=== PATIENT | female | born 1975 | race Caucasian/White ===

== ENCOUNTER 2016-10-07 10:38 | Emergency (ER) | payer BC ==
[~2016-10-07] VITALS: Ht 157.5 cm; Wt 55.3 kg
[2016-10-07] MEDS ORDERED: NS 500 ML IV ONE (11:00)
[2016-10-07] MEDS ORDERED: ASPIRIN 81 MG CHEW TABLET PO ONE (11:00)
[2016-10-07 11:13] LABS: BASO % 0.6 % (0.0-1.0); EOS # 0.2 K/mm3 (0.0-0.50); EOS % 2.1 % (0.0-3.0); LARGE UNSTAINED CELL # 0.2 K/mm3 (0.0-0.4); LARGE UNSTAINED CELL % 2.6 % (0.0-4.0); LYMPH # 2.7 K/mm3 (1.5-4.5); LYMPH % 31.3 % (24.0-44.0); MEAN CORPUSCULAR HEMOGLOBIN 32.4 pg (27.0-33.0); MEAN CORPUSCULAR VOLUME 95.5 fl (80.0-96.0); MONO # 0.4 K/mm3 (0.0-0.8); MONO % 5.6 % (0.0-5.0); NEUTROPHILS # 4.6 K/mm3 (1.8-7.7); NEUTROPHILS % 57.9 % (36.0-66.0); PLATELET COUNT, AUTOMATED 211 k/mm3 (150-450); RED CELL DISTRIBUTION WIDTH 12.2 % (11.5-14.5); WHITE BLOOD COUNT 7.9 K/mm3 (4.0-10.0)
[2016-10-07] MEDS ORDERED: SUCR1TA PO (11:23)
[2016-10-07] MEDS ORDERED: BUPR10TASR PO (11:23)
[2016-10-07 11:45] LABS: ALBUMIN 4.5 GM/DL (3.2-5.2); ALBUMIN/GLOBULIN RATIO 1.61 (1.00-1.93); ALKALINE PHOSPHATASE 52 U/L (45-117); ALT/SGPT 15 U/L (12-78); ANION GAP 8 MEQ/L (8-16); AST/SGOT 17 U/L (15-37); BILIRUBIN,DIRECT 0.1 MG/DL (0.0-0.2); BILIRUBIN,TOTAL 0.6 MG/DL (0.2-1.0); BLOOD UREA NITROGEN 8 MG/DL (7-18); CALCIUM LEVEL 8.6 MG/DL (8.5-10.1); CARBON DIOXIDE LEVEL 25 MEQ/L (21-32); CHLORIDE LEVEL 105 MEQ/L (98-107); CREATININE FOR GFR 0.75 MG/DL (0.55-1.02); GLOMERULAR FILTRATION RATE > 60.0 (>58); GLUCOSE, FASTING 102 MG/DL (70-105); MAGNESIUM LEVEL 2.1 MG/DL (1.8-2.4); POTASSIUM SERUM 3.5 MEQ/L (3.5-5.1); SODIUM LEVEL 138 MEQ/L (136-145); TOTAL PROTEIN 7.3 GM/DL (6.4-8.2)
--- NOTE | 2016-10-07 11:46 | REP ---
PORTABLE CHEST, SINGLE VIEW: COMPARISON: 07/06/2015 There is no evidence of acute infiltrate. No pleural effusion is seen. The heart is normal in size. The mediastinal silhouette is unremarkable. The visualized osseous structures are intact. IMPRESSION: No acute pulmonary disease. Signed by Shivam Ram MD 10/07/2016 03:54 P
[2016-10-07] MEDS ORDERED: ISOVUE-370 76% 100ML VIAL (Q9967) As Ordered ONE (11:49)
[2016-10-07] MEDS ORDERED: PROP10TA56 PO (12:16)
[2016-10-07] MEDS ORDERED: NICO2GUM34 PO (12:16)
[2016-10-07] MEDS ORDERED: BUPR150T5 PO (12:16)
[2016-10-07] MEDS ORDERED: TYLE1TAB5 PO (12:16)
--- NOTE | 2016-10-07 12:39 | REP ---
CT ANGIO CHEST: TECHNIQUE: Axial contrast enhanced images from the thoracic inlet to the upper abdomen using 100 mL Isovue 370 intravenous contrast material with multiplanar reformations. There is a tiny calcified granuloma in the right middle lobe as well as in the right lower lobe. No infiltrates are seen. Aberrant right subclavian artery is noted. There is no thoracic aortic aneurysm or dissection. There is no evidence of a pulmonary embolism. No adenopathy is seen in the chest. There is no pleural or pericardial effusion. The heart is normal in size. The visualized upper abdominal structures are unremarkable. IMPRESSION: No CT evidence of pulmonary embolism. Signed by Shivam Ram MD 10/07/2016 03:55 P
[2016-10-07] MEDS ORDERED: LISI2.5T3 PO (14:06)
[2016-10-07 14:11] VITALS: BP 136/92
--- NOTE | 2016-10-07 21:48 | ECGEPIP ---
Stationary ECG Study [facility] - ED Test Date: 2016-10-07 Pat Name: COMPA DENG Department: Room: - Gender: F Poker Manager: jeniffer : 1975 Requested By: JAZIEL Galicia Order Number: [id number] Reading MD: Delmi Méndez Measurements Intervals [place] Rate: 109 P: 59 CO: 120 QRS: -13 QRSD: 100 T: 23 QT: 342 QTc: 461 Interpretive Statements SINUS TACHYCARDIA PVC NSTTW ABNORMALITY NO PRIOR FOR COMPARISON Electronically Signed On 10-07-2016 21:47:54 EDT by Delmi Méndez
--- NOTE | 2016-10-09 21:22 | ECGEPIP ---
Stationary ECG Study [facility] - ED Test Date: 2016-10-07 Pat Name: COMPA DENG Department: Room: - Gender: F Home Help Aide: JT : 1975 Requested By: JAZIEL Galicia Order Number: [id number] Reading MD: Delmi Méndez Measurements Intervals [place] Rate: 89 P: 62 AL: 150 QRS: -12 QRSD: 92 T: 39 QT: 377 QTc: 460 Interpretive Statements SINUS RHYTHM WITH SINUS ARRHYTHMIA DECREASED RATE 10/07/16 10:49 Electronically Signed On 10-09-2016 21:22:25 EDT by Delmi Méndez
== END 2016-10-07 14:22 | disposition home or self-care (01) ==
LOC: EDBD 10:38 → M ED 12:33
DX: R00.2 Palpitations (principal); R07.9 Chest pain, unspecified; Z79.899 Other long term (current) drug therapy; Z82.49 Family history of ischemic heart disease and other diseases of the circulatory system; Z87.891 Personal history of nicotine dependence
CPT/HCPCS: 71010; 71275; 80048; 80076; 82550; 82553; 83690; 83735; 83880; 84443; 85025; 93005; 93041; 94760; 96360; 96361; 99285; Q9967

== ENCOUNTER → 2016-12-18 | Outpatient (REF) | payer BC ==
[~2016-12-18] MED LIST: BUPR10TASR PO; BUPR150T5 PO; LISI2.5T3 PO; NICO2GUM34 PO; PROP10TA56 PO; SUCR1TA PO; TYLE1TAB5 PO
== END ==
LOC: M LAB REF 16:41
PROVIDERS: ATTEND Nurse Practitioner Women's Health
DX: N39.0 Urinary tract infection, site not specified (principal)

== ENCOUNTER → 2017-09-30 | Outpatient (CLI) | payer BC | LOC: M WUC 15:39 | DX: M54.5 Low back pain (principal) | CPT/HCPCS: 72110 ==

== ENCOUNTER → 2019-07-12 | Outpatient (CLI) | payer BC ==
[~2019-07-12] MED LIST changes: +LISI-1046 PO; -LISI2.5T3 PO; -NICO2GUM34 PO; +NICO2GUM50 PO
== END ==
LOC: M EKG 13:20
PROVIDERS: ATTEND Family Medicine
DX: I10 Essential (primary) hypertension (principal)

== ENCOUNTER → 2020-06-13 | Outpatient (CLI) | payer SELFPAY ==
[~2020-06-13] MED LIST changes: -LISI-1046 PO; +LISI2.5T2 PO
== END ==
LOC: M LABSMTC 14:20
PROVIDERS: ATTEND Pediatrics
DX: Z11.59 Encounter for screening for other viral diseases (principal)

== ENCOUNTER → 2021-02-08 | Outpatient (CLI) | payer BC ==
--- NOTE | 2021-02-08 12:21 | REPMRS ---
Patient History The patient states she had a clinical breast exam in January 2021. Family history of unknown cancer at age 75 in father. Took hormonal contraceptives for 8 years. Tomosynthesis is performed. Volpara breast density is d. [facility] lifetime risk of breast cancer 9.3%. Patient states no breast complaints today. Patient has signed MRS History Sheet. Digital Woman Screen Mammo: February 08, 2021 - Exam #: [id number] Bilateral CC and MLO view(s) were taken. Technologist: Sherrell Ortiz, Technologist Prior study comparison: April 21, 2020, bilateral digital mammo screening bilat, performed at [facility] [employer] [facility]. January 08, 2019, bilateral digital mammo screening bilat, performed at [facility]. January 19, 2016, bilateral digital mammo screening bilat, performed at [facility]. June 15, 2013, left breast digital mammo diagnostic unilateral, performed at [facility]. June 08, 2013, bilateral bilat screen digital mammo, performed at [facility] ([facility]). FINDINGS: The breast tissue is extremely dense which could obscure a lesion on mammography. There has been no change in the appearance of the mammogram from the prior studies. There is a moderate amount of residual fibroglandular tissue which is fairly symmetric. There is no interval development of dominant mass, areas of architectural distortion, or clustered microcalcification typical of malignancy. No significant changes when compared with prior studies. Assessment: BI-RADS/ACR category 1 mammogram. Negative Mammogram. Recommendation Routine screening mammogram in 1 year (for women over age 40). This mammogram was interpreted with the aid of an FDA-approved computer-aided dectection system. Electronically Signed By: Shivam Ram MD 02/08/21 1483
--- NOTE | 2021-02-08 12:21 | REP ---
INDICATION: N95.0 POSTMENOPAUSAL BLEEDING. COMPARISON: 12/23/2008 TECHNIQUE: Transvesical and transvaginal scanning FINDINGS: The uterus measures 8.1 x 3.4 x 4.1 cm. Within the posterior uterine body there is a 1.1 x 0.8 x 1 cm sized hypoechoic nodule. The endometrial echo complex is smooth and unremarkable appearing measuring 3 mm in its greatest thickness. The right ovary measures 1.9 x 1.5 x 1.5 cm and is within normal limits with an RI of 0.56 The left ovary measures 2.2 x 1.9 x 1.6 cm and is within normal limits with an RI 0.56. IMPRESSION: Uterine myomatous changes as described above. <Electronically signed by Juan Ansari > 02/08/21 2452
== END ==
LOC: M WHC 10:21
PROVIDERS: ATTEND Obstetrics & Gynecology
DX: Z12.31 Encounter for screening mammogram for malignant neoplasm of breast (principal); N95.0 Postmenopausal bleeding

== ENCOUNTER → 2021-03-29 | Outpatient (CLI) | payer BC ==
[~2021-03-29] MED LIST changes: -LISI2.5T2 PO; +LISI2.5T9 PO
--- NOTE | 2021-03-29 19:57 | REPVR ---
PROCEDURE INFORMATION: Exam: MR Lumbar Spine Without Contrast Exam date and time: 03/29/2021 8:27 AM Age: 45 years old Clinical indication: Low back pain; Additional info: Spondylosis TECHNIQUE: Imaging protocol: Multiplanar magnetic resonance images of the lumbar spine without intravenous contrast. COMPARISON: CR SPINE LS COMPLETE 09/30/2017 3:51 PM FINDINGS: Vertebrae: Anatomic alignment. No acute fracture seen. Spinal cord: The conus medullaris ends normally. There is disc desiccation with ublu-xv-edpxhict disc height loss and spondylosis at L5-S1. Elsewhere, the intervertebral are preserved in height and signal intensity. There is mild prevertebral spondylosis at L2-L3. L1-L2: No significant disc disease. No significant spinal canal stenosis. No neural foraminal stenosis. L2-L3: Mild disc bulge. No stenoses. L3-L4: Mild right facet arthropathy. No stenoses. L4-L5: Mild right facet arthropathy. No stenoses. L5-S1: Cwnn-rl-daxgybkm disc osteophyte and facet arthropathy. A 4 mm right paracentral disc protrusion abuts and slightly flattens the right S1 nerve root. Left lateral canal disc osteophyte may contact the left S1 nerve root. No significant central spinal canal stenosis. Mild bilateral neural foraminal stenoses. Soft tissues: Unremarkable. Kidneys and ureters: The left kidney demonstrates a cyst. IMPRESSION: Degenerative changes at L5-S1, as above. Electronically signed by: Mecca Quarles On 03/29/2021 19:57:02 PM
== END ==
LOC: M RAD 07:20
PROVIDERS: ATTEND Orthopaedic Surgery
DX: M47.896 Other spondylosis, lumbar region (principal)

== ENCOUNTER → 2021-04-14 | Outpatient (CLI) | payer BC ==
[~2021-04-14] MED LIST changes: +LOSA25TA14 PO
== END ==
LOC: M LABSMTC 11:28
PROVIDERS: ATTEND Anesthesiology
DX: Z01.812 Encounter for preprocedural laboratory examination (principal); Z20.822 Contact with and (suspected) exposure to COVID-19

== ENCOUNTER 2021-04-19 07:38 | Day surgery (SDC) | payer BC ==
[~2021-04-19] VITALS: Ht 157.5 cm; Wt 59.0 kg
[~2021-04-19 07:38] MED LIST changes: +LR 1,000 ML IV ONE
--- OUTSIDE RECORDS SUMMARY | 2021-04-19 07:41 | CCD | Continuity of Care Document ---
Author Author Caitlyn CARPIO M.D. Organization Unknown Address [address] [place] [address] Phone [phone] Problems Active Problems Provider Date Anxiety state JOB Mckee Onset: 01/13/2012 Headache Jayleen Mike D.O. Onset: 2011 Social History Type Date Description Comments Sex Unknown ETOH Use consumes 1-2 glasses of wine per week Now rare Tobacco Use Start: Unknown End: Unknown Patient is a former smoker smokes 1 1/2 paks a week - Quit 09/2016 - restarted and quit again 09/10/2019 for good Allergies, Adverse Reactions, Alerts Active Allergies Reaction Severity Comments Date Sulfa shortness of breath 01/13/20 12 Medications Active Medications SIG Qnty Indications Ordering Provide r Date Zanaflex 4mg Capsules by mouth every 6 hours as needed muscle spasm 30caps Juan Jose Trotter 09/07/2020 Xanax 0.25mg Tablets 1 tab by mouth three a day as needed anxiety 30tabs Smith Carpio M.D. Losartan Potassium 50mg Tablets 1 by mouth every day 90tabs Smith Carpio M.D. 10/28/2018 History Medications Prednisone 20mg Tablets 3 tabs x 3 days, then 2 tabs x3 days then 1 tab x 3 days then 1/2 tab x 4 days. 30tabs Smith Carpio M.D. 09/07/2020 - 02/12/2021 Medications Administered in Office Medication SIG Qnty Indications Ordering Provider Date Immunization Each Add'l Vacc/To Injection Jayleen Mike D.O. 1 Immunizations CPT Code Status Date Vaccine Lot # [id number] Given 04/28/2014 Fluvirin Virus Vaccine [id number] Given 04/28/2014 Pneumovax 23 [id number] Given 04/15/2012 Fluvirin Virus Vaccine Vital Signs Date Vital Result Comment 02/12/2021 9:00am BP Systolic 128 mmHg BP Diastolic 72 mmHg Heart Rate 72 /min Height 62.75 inches 5'2.75" Weight 129.00 lb BMI (Body Mass Index) 23.0 kg/m2 10/31/2020 1:31pm BP Systolic 130 mmHg BP Diastolic 82 mmHg Heart Rate 80 /min Height 62.75 inches 5'2.75" Weight 129.00 lb BMI (Body Mass Index) 23.0 kg/m2 Results Test Acquired Date Facility Test Result H/L Range Note Comprehensive Chem Profile 02/12/2021 [facility] Person: [place] [address] [phone] Glucose 78 mg/dL 74 - 99 1 BUN 13 mg/dL 7 - 18 Creatinine 0.7 mg/dL 0.6 - 1.3 Sodium 140 mEq/L 136 - 145 Potassium 4.4 mEq/L 3.5 - 5.1 Chloride 101 mEq/L 98 - 107 Carbon Dioxide 33 mEq/L High 21 - 32 Calcium 9.5 mg/dL 8.5 - 10.1 Alk. Phosphatase 49 mg/dL 46 - 116 Total Bilirubin 0.7 mg/dL 0.2 - 1.0 Ast (Sgot) 22 U/L 15 - 37 Alt (SGPT) 24 U/L 12 - 78 Albumin 4.7 g/dL 3.4 - 5.0 Total Protein 7.5 g/dL 6.4 - 8.2 A/G Ratio 1.68 CALC 1.00 - 1.90 GFR >= 60 mL/min >60 GFR >= 60 mL/min >60 2 Lipid Profile 02/12/2021 [facility] , [facility] Refrigeration Person: [place] [address] [phone] Cholesterol 250 mg/dL High 131 - 200 Triglycerides 106 mg/dL 30 - 150 HDL Cholesterol 63 mg/dL High 35 - 60 LDL (Calculated) 166 CALC High 50 - 159 1 100-125 mg/dL PRE-DIABET ES/FASTING >126 mg/dL DIABETES/FASTING 2 CHRONIC KIDNEY DISEASE STAGI NG PER NKF STAGE I & II GFR >= 60 NORMAL TO MILDLY DECREASED STAGE III GFR 30-59 MODERATELY DECREASED STAGE IV GFR 15-29 SEVERELY DECREASED STAGE V GFR <15 VERY LITTLE GFR LEFT ESRD GFR <15 ON DIRECTOR OF ONLINE MERCHANDISING Procedures Date Code Description Status 02/12/2021 99975 Est Prevent Med (40-64Yrs) Compl eted 10/31/2020 48049 Office/Outpatient Established SF MDM 10-19 Min Completed 02/10/2017 [id number] Mammogram Completed 09/07/2015 [id number] Colonoscopy Completed 11/17/2002 [id number] Mammogram Completed Medical Devices Description No Information Available Encounters Type Date Location Provider Dx Diagnosis Office Visit 02/12/2021 9:00a [facility] Carpio M.[facility] Z00.00 Encntr for general adult medical exam w/ o abnormal findings Z87.891 Personal history of nicotine dependence I10 Essential (primary) hyperten ana I34.1 Nonrheumatic mitral (valve) prolapse E78.5 Hyperlipidemia, unspecified K21.9 Gastro-esophageal reflux dis ease without esophagitis Office Visit 10/31/2020 1:40p [facility] Kat JR D48.5 Neoplasm of uncertain behavi or of skin Assessments Date Code Description Provider 02/12/2021 Z00.00 Encounter for genera l adult medical examination without abnormal findings Smith Carpio M.D. 02/12/2021 Z87.891 Personal history of nicotine dep endence Smith Carpio M.D. 02/12/2021 I10 Essential (primary) hypertension Smith Carpio M.D. 02/12/2021 I34.1 Nonrheumatic mitral (valve) prol apse Smith Carpio M.D. 02/12/2021 E78.5 Hyperlipidemia, unspecified Roland Carpio M.D. 02/12/2021 K21.9 Gastro-esophageal reflux disease without esophagitis Smith Carpio M.D. 10/31/2020 D48.5 Neoplasm of uncertain behavior o f skin [facility] Plan of Treatment Future Appointment(s):* 08/17/2021 8:30 am - [facility] 02/12/2021 - Smith Carpio M.D.* Z00.00 Encntr for general adult medical exam w/o abnormal findings * Z87.891 Personal history of nicotine dependence * I10 Essential (primary) hypertension * I34.1 Nonrheumatic mitral (valve) prolapse * E78.5 Hyperlipidemia, unspecified * K21.9 Gastro-esophageal reflux disease without esophagitis * * Comments:* 1. Annual well visit: Well education was done today. She follows up with Dr. Cleveland for FINANCE DIRECTOR. She had a mammogram prior via [facility]. She is up to date with colonoscopy and EGD [place] [address] Mecca Tellez. Immunization discussed. She is doing overall well. I have congratulated her for remaining smoke free.2. Hypertension: Well-controlled on present regimen, will continue and monitor. 3. Nonrheumatic mitral (valve) prolapse: Asymptomatic. Mild mitral insufficiency on echo 02/2019. We will recheck appropriately.4. Hyperlipidemia: Her cholesterol and LDL were elevated in August 2020. We discussed positive lifestyle changes and we will continue to monitor.5. Gastro-esophageal reflux disease without esophagitis: Diet controlled. She will avoid spicy foods.6. Allergic rhinitis: Education was done. She will continue to use Claritin as direct ed.7. Skin lesions: Education was done. She is going to see Azalia at [facility] for dermatological issues. We will monitor.Ongoing cares: I am going to see her again in 6 months with CMP, lipids and TSH. Labs on way out - she will follow up on those. We will make sure her cholesterol is normal. If she has new problems or issues sooner she will let us know. Functional Status Description No Information Available Mental Status Description No Information Available Referrals Refer to Reason for Referral Status Appt Date [facility] CONSULT FOR LT BACK AND LT LEG PA IN Created [address] [place] [address] [phone] [facility] D[facility] CONSULT FOR FULL SKIN EVALUATION Created [address] [address] [phone]
--- OUTSIDE RECORDS SUMMARY | 2021-04-19 07:41 | CCD | Continuity of Care Document ---
Author Author Caitlyn NIXON M.D. Organization Unknown Address [address] [place] [address] Phone [phone] Problems Active Problems Provider Date Anxiety state [...] SIG Qnty Indications Ordering Provide r Date Prednisone 20mg Tablets 3 tabs x 3 days, then 2 tabs x3 days then 1 tab x 3 days then 1/2 tab x 4 days. 30tabs Smith Nixon M.D. 09/07/2020 Zanaflex 4mg Capsules by mouth every 6 hours as needed muscle spasm 30caps Juan Jose Trotter 09/07/[address] by mouth twice a day 60tabs Smith Nixon M.D. 05/09/2020 GI Support Supplement Smith Nixon M.D. 11/04/2019 Xanax 0.25mg Tablets 1 tab by mouth three a day as needed anxiety 30tabs Smith Nixon M.D. Losartan Potassium 50mg Tablets 1 by mouth every day 90tabs Smith Nixon M.D. 10/28/2018 Flonase 50mcg/Act Suspension one spray each nare twice a day as needed 1mo Jayleen Lacey D.O. 04/13/2014 Medications Administered in Office Medication SIG Qnty Indications Ordering Provider Date Immunization Each Add'l Vacc/To Injection Jayleen Mike D.O. 1 Immunizations CPT Code Status Date Vaccine Lot # [id number] Given 04/28/2014 Fluvirin Virus Vaccine [id number] 01 30169 Given 04/28/2014 Pneumovax 23 [id number] Q2037 Given 04/15/2012 Fluvirin Virus Vaccine Vital [...] BMI (Body Mass Index) 23.0 kg/m2 Results Description No Information Available Procedures Date Code Description Status 10/31/2020 68161 Office/Outpatient Established SF MDM 10-19 Min Completed 02/10/2017 [id number] Mammogram Completed 09/07/2015 [id number] Colonoscopy Completed 11/17/2002 [id number] Mammogram Completed Medical Devices Description No Information Available Encounters Type Date Location Provider Dx Diagnosis Office Visit 10/31/2020 1:40p [facility] GI Sainz JR D48.5 Neoplasm of uncertain behavi or of skin Assessments Date Code Description Provider 10/31/2020 D48.5 Neoplasm of uncertain behavior o f skin [facility] Plan of Treatment No Information Available Functional Status Description No Information Available Mental Status Description No Information Available Referrals Refer to Dr Reason for Referral Status Appt Date [facility] Dermatology CONSULT FOR FULL SKIN EVALUATION Created [address] [address] [phone]
--- OUTSIDE RECORDS SUMMARY | 2021-04-19 07:41 | CCD | Continuity of Care Document ---
Author Author Caitlyn MIXON Organization Unknown Address [address] [place] [address] Phone [phone] Care Team Providers Care Nanoelectronics Engineer Name Role Phone Smith Carpio MD [facility] [phone] Problems Description No Information Available Social History Type Date Description Comments Sex Unknown Allergies and adverse reactions Description No Information Available Medications Active Medications SIG Qnty Indications Ordering Provide r Date Mobic 7.5mg Tablets 1 by mouth after meals twice a day 60tabs M47.896 Clay Ramsey MD 03/19/2021 Immunizations Description No Information Available Vital Signs Date Vital Result Comment 03/19/2021 10:12am Body Temperature 96.9 F Height 63 inches 5'3" Weight 129.50 lb BMI (Body Mass Index) 22.9 kg/m2 03/19/2021 9:51am Body Temperature 96.4 F Height 64 inches 5'4" Weight 209.00 lb BMI (Body Mass Index) 35.9 kg/m2 Results Description No Information Available Procedures Date Code Description Status 04/11/2021 92927 Office/Outpatient Established Mo d MDM 30-39 Min Completed 03/19/2021 26337 Office/Outpatient New Moderate M DM 45-59 Minutes Completed 03/19/2021 95629 X-Ray Spine Lumbosacral Complete Inc Bending Views Min Of 6 Completed 03/19/2021 97183 X-Ray Spine Lumbosacral Complete Inc Bending Views Min Of 6 Completed Medical Devices Description No Information Available Encounters Type Date Location Provider Dx Diagnosis Office Visit 04/11/2021 3:15p [facility] Neena Mixon PA-C M4 7.27 Other spondylosis with radiculopathy, lumbosacral region Office Visit 03/19/2021 9:30a [facility] Clay Ramsey MD M47.896 Other spondylosis, lumbar region M54.32 Sciatica, left side Assessments Date Code Description Provider 04/11/2021 M47.27 Other spondylosis with radiculop athy, lumbosacral region Neena Mixon PA-C 03/19/2021 M47.896 Other spondylosis, lumbar region Clay Ramsey MD 03/19/2021 M54.32 Sciatica, left side Clay [address], MD 03/19/2021 M47.896 Other spondylosis, lumbar region Neena Mixon PA-C Plan of Treatment Future Appointment(s):* 04/27/2021 3:30 pm - Santo Solis, PT, DPT at Physical Therapy * 05/09/2021 3:45 pm - Neena Mixon PA-C at [facility] 04/11/2021 - Neena Mixon PA-C* M47.27 Other spondylosis with radiculopathy, lumbosacral region* Follow up:* 4 week low back recheck w/[facility] Functional Status Description No Information Available Mental Status Description No Information Available Referrals Refer to Dr Reason for Referral Status Appt Date Neena Mixon PA-C NO AUTH REQUIRED FOR PT L-SP INE. [facility] HAS 63 VISITS REMAINING OF 75 PER YEAR. $35 COPAY EACH VISIT. HW Created [facility] [place] [address] [phone] Neena Mixon PA-C MRI NO AUTH REQUIRED FOR MRI OF LUMBAR SPINE ([id number]) TO KENNETH MarquezGilma DG Created [facility] [place] [address] [phone]
--- OUTSIDE RECORDS SUMMARY | 2021-04-19 07:41 | CCD | Continuity of Care Document ---
Author Author Caitlyn Salmeron Organization Unknown Address [address] [place] [address] Phone [phone] Care Team Providers Care Senior Business Development Analyst Name Role Phone Smith Carpio MD [facility] [phone] Problems Description No Information Available Social History Type Date Description Comments Sex Unknown Tobacco Use Start: Unknown End: Unknown Former Cigarette Smo ker Quit 2018 ETOH Use Rarely consumes alcohol Sun Exposure minimum amount of sun exposure Sun Exposure Tanning bed - Has used in past. No longer using. Sun Exposure Has experienced blistering from sunburns Sun Exposure Uses > 30 SPF Allergies, Adverse Reactions, Alerts Active Allergies Reaction Severity Comments Date sulfa 11/21/2020 Medications Active Medications SIG Qnty Indications Ordering Provide r Date Losartan Potassium Unknown Hair/Skin/Nails Unknown 0 Vitamin C Unknown Vitamin D3 Unknown Immunizations Description No Information Available Vital Signs Date Vital Result Comment 11/21/2020 8:01am BP Systolic 132 mmHg BP Diastolic 80 mmHg Weight 120.00 lb Results Description No Information Available Procedures Date Code Description Status 11/21/2020 71969 Office/Outpatient New Moderate M DM 45-59 Minutes Completed 11/21/2020 15891 Destruction Of Lesions 2-14 Comp leted 11/21/2020 08686 Destruction Of Lesion First Comp leted Medical Devices Description No Information Available Encounters Type Date Location Provider Dx Diagnosis Office Visit 11/21/2020 8:00a Main Office BENSON Boothe L57.0 Actinic keratosis L81.6 Other disorders of diminishe d melanin formation L68.0 Hirsutism R20.8 Other disturbances of skin s ensation Assessments Date Code Description Provider 02/08/2021 L68.0 Hirsutism Deepa 01/05/2021 L68.0 Hirsutism Faviola 11/21/2020 L98.8 Other specified disorders of the skin and subcutaneous tissue Laverne [place] 11/21/2020 L98.8 Other specified disorders of the skin and subcutaneous tissue Cosmetic Consultation 11/21/2020 L57.0 Actinic keratosis Karime MINO Kaufman 11/21/2020 L81.6 Other disorders of diminished me lanin formation MINO Boothe 11/21/2020 L68.0 Hirsutism Karime SMINO Weller 11/21/2020 R20.8 Other disturbances of skin sensa tion MINO Boothe Plan of Treatment Future Appointment(s):* 03/09/2021 9:30 am - Deepa at Cosmetics * 04/10/2021 8:00 am - MINO Haile at Main Office 01/05/2021 - Faviola* L68.0 Hirsutism* Comments:* Discussed treatment options including electrolysis, laser, Vaniqa, shaving, waxing.Patient tolerated treatment well. See R Flow Sheet.Verbalizes understanding of Patient Education provided. Encouraged to call with any questions or concerns. Functional Status Description No Information Available Mental Status Description No Information Available Referrals Description No Information Available
--- OUTSIDE RECORDS SUMMARY | 2021-04-19 07:41 | CCD | Continuity of Care Document ---
Author Author Caitlyn CONLEY MD Organization Unknown Address [address] [place] [address] Phone [phone] Care Team Providers Care Hotel Reservationist Name Role Phone Smith Carpio MD [facility] [phone] Problems Description No Information Available Social History Type Date Description Comments Sex Unknown Allergies, Adverse Reactions, Alerts Description No Information Available Medications Active Medications SIG Qnty Indications Ordering Provide r Date Mobic 7.5mg Tablets 1 by mouth after meals twice a day 60tabs M47.896 Clay Conley MD 03/19/2021 Immunizations Description No Information Available Vital Signs Date Vital Result Comment 03/19/2021 10:12am Body Temperature 96.9 F Height 63 inches 5'3" Weight 129.50 lb BMI (Body Mass Index) 22.9 kg/m2 03/19/2021 9:51am Body Temperature 96.4 F Height 64 inches 5'4" Weight 209.00 lb BMI (Body Mass Index) 35.9 kg/m2 Results Description No Information Available Procedures Date Code Description Status 03/19/2021 74106 X-Ray Spine Lumbosacral Complete Inc Bending Views Min Of 6 Completed Medical Devices Description No Information Available Encounters Description No Information Available Assessments Date Code Description Provider 03/19/2021 M47.896 Other spondylosis, lumbar region Neena Mixon PA-C Plan of Treatment 03/19/2021 - Neena Mixon PA-C* M47.896 Other spondylosis, lumbar region * New Medication:* Mobic 7.5 mg - 1 by mouth after meals twice a day * New Xrays:* MRI Lumbar Spine, Ordered: 03/19/21 * Follow up:* lumbar mri results with [facility] Functional Status Description No Information Available Mental Status Description No Information Available Referrals Description No Information Available
--- OUTSIDE RECORDS SUMMARY | 2021-04-19 07:41 | CCD | Continuity of Care Document ---
Author Author Caitlyn MIXON Organization Unknown Address [address] [place] [address] Phone [phone] Care Team Providers Care Marine Steward Name Role Phone Smith Carpio MD [facility] [phone] Problems Description No Information Available Social History [...] Available Procedures Date Code Description Status 03/19/2021 66264 Office/Outpatient New Moderate M DM 45-59 Minutes Completed 03/19/2021 83064 X-Ray Spine Lumbosacral Complete Inc Bending Views Min Of 6 Completed 03/19/2021 73582 X-Ray Spine Lumbosacral Complete Inc Bending Views Min Of 6 Completed Medical Devices Description No Information Available Encounters Type Date Location Provider Dx Diagnosis Office Visit 03/19/2021 9:30a [place] Clay Ramsey MD M47.896 Other spondylosis, lumbar region M54.32 Sciatica, left side Assessments Date Code Description Provider 04/11/2021 M51.37 Other intervertebral disc degene ration, lumbosacral region Neena Mixon PA-C 04/11/2021 M51.27 Other intervertebral disc displa cement, lumbosacral region Neena Mixon PA-C 04/11/2021 M48.07 Spinal stenosis, lumbosacral reg ion Neena Mixon PA-C 04/11/2021 M47.27 Other spondylosis with radiculop athy, lumbosacral region Neena Mixon PA-C 04/11/2021 M54.32 Sciatica, left side Neena balderrama PA-C 03/19/2021 M47.896 Other spondylosis, lumbar region Clay Ramsey MD 03/19/2021 M54.32 Sciatica, left side Clay [address], MD 03/19/2021 M47.896 Other spondylosis, lumbar region Neena Mixon PA-C Plan of Treatment Future Appointment(s):* 05/09/2021 3:45 pm - Neena Mixon PA-C at [place] 04/11/2021 - Neena Mixon PA-C* M51.37 Other intervertebral disc degeneration, lumbosacral region* Follow up:* 4 week low back recheck w/BMS * M51.27 Other intervertebral disc displacement, lumbosacral region * M48.07 Spinal stenosis, lumbosacral region * M47.27 Other spondylosis with radiculopathy, lumbosacral region * M54.32 Sciatica, left side Functional Status Description No Information Available Mental Status Description No Information Available Referrals Refer to Reason for Referral Status Appt Date Neena Mixon PA-C MRI NO AUTH REQUIRED FOR MRI OF LUMBAR SPINE ([id number]) TO KENNETH LÓPEZ Created [address] [place] [address] [address] [place] [address] [phone]
--- OUTSIDE RECORDS SUMMARY | 2021-04-19 07:41 | CCD | Continuity of Care Document ---
Author Author Caitlyn MARTINEZ Organization Unknown Address [address] [place] [address] Phone [phone] Care Team Providers Care Elementary Assistant Teacher Name Role Phone Smith Carpio M.D. [facility] [phone] Problems Active Problems Provider Date Disorder of menstruation Cassy Pavon WHNP Onset: 012 Social History Type Date Description Comments Sex Unknown Tobacco Use Start: Unknown End: Unknown Quit Smoking Status Reviewed: 03/30/21 Quit ETOH Use Non-smoker, Occasional Drinker, Non-drug User Tobacco Use Start: Unknown End: Unknown Patient is a former smoker Exercise Type/Frequency Exercises regularly Allergies, Adverse Reactions, Alerts Active Allergies Criticality Reaction | Severity Comments Date Sulfa Unable to assess criticality 09/25/2009 Medications Active Medications SIG Qnty Indications Ordering Provide r Date Losartan Potassium 25mg Tablets Unknown Immunizations Description No Information Available Vital Signs Date Vital Result Comment 01/16/2021 8:46am BP Systolic 134 mmHg BP Diastolic 74 mmHg Height 62.5 inches 5'2.50" Weight 127.00 lb BMI (Body Mass Index) 22.9 kg/m2 BSA (Body Surface Area) 1.59 m2 01/05/2020 9:49am BP Systolic 136 mmHg BP Diastolic 78 mmHg Height 62.25 inches 5'2.25" Weight 123.00 lb BMI (Body Mass Index) 22.3 kg/m2 BSA (Body Surface Area) 1.56 m2 Results Test Acquired Date Facility Test Result H/L Range Note Thinprep W/Reflex HR HPV If Asc-US 01/16/2021 [facility] th TP Reflex HPV ASCUS Normal Normal 1 TP Reflex HPV ASCUS SEE IMAGE 1 SPECIME N PART A. Cervical, Endocervical, ThinPrep Pap (Senior Electronics Engineer) CYTOLOGY HX-------- Date of Last Menstrual Period: N Other Information:Previous Normal Pap: 01/05/20 Post-menopausal FINAL DIAGNOSIS---- INTERPRETATION: Negative for Intraepithelial Lesion or Malignancy. SPECIMEN ADEQUACY:Satisfactory for evaluation. Endocervical/transformation zone component present. 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 D25.1 Intramural leiomyoma of uter us Office Visit 01/16/2021 9:00a [facility] senior engineering team leader Roselyn Martinez MD N9 5.0 Postmenopausal bleeding Z01.411 Encntr for ribbon hanking machine operator exam (general ) (routine) w abnormal findings Z12.4 Encounter for screening for malignant neoplasm of cervix Z12.39 Encounter for ot screening for malignant neoplasm of breast Assessments Date Code Description Provider 03/30/2021 N95.0 Postmenopausal bleeding Roselyn Martinez MD 03/30/2021 D39.0 Neoplasm of uncertain behavior o f uterus Roselyn Martinez MD 03/30/2021 D25.1 Intramural leiomyoma of uterus H Roselyn mejia MD 01/16/2021 N95.0 Postmenopausal bleeding Roselyn Martinez MD 01/16/2021 Z01.411 Encounter for gyneco logical examination (general) (routine) with abnormal findings Roselyn Martinez MD 01/16/2021 Z12.4 Encounter for screening for cristhian gnant neoplasm of cervix Roselyn Martinez MD 01/16/2021 Z12.39 Encounter for other screening for malignant neoplasm of breast Roselyn Martinez MD Plan of Treatment Future Appointment(s):* 05/02/2021 8:45 am - Roselyn Martinez MD at [facility] senior engineering team leader * 04/19/2021 10:00 am - Roselyn Martinez MD at [facility] Or * 01/30/2022 2:15 pm - Roselyn Martinez MD at [facility] senior engineering team leader 03/30/2021 - Roselyn Martinez MD* N95.0 Postmenopausal bleeding * 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
--- OUTSIDE RECORDS SUMMARY | 2021-04-19 07:41 | CCD | Continuity of Care Document ---
Author Author Caitlyn MARTINEZ Organization Unknown Address [address] [place] [address] Phone [phone] Care Team Providers Care Tire Builder Name Role Phone Smith Carpio M.D. [facility] [phone] Problems Active Problems Provider Date Disorder of menstruation Cassy Pavon WHNP Onset: 012 Social History Type Date Description Comments Sex Unknown Tobacco Use Start: Unknown End: Unknown Quit Smoking Status Reviewed: 01/16/21 Quit ETOH Use Non-smoker, Occasional Drinker, Non-drug [...] N PART A. Cervical, Endocervical, ThinPrep Pap (Printed Circuit Board Pcb Draftsman) CYTOLOGY HX-------- Date of Last Menstrual Period: N Other Information:Previous Normal Pap: 01/05/20 Post-menopausal FINAL DIAGNOSIS---- INTERPRETATION: Negative for Intraepithelial Lesion or Malignancy. SPECIMEN ADEQUACY:Satisfactory for evaluation. Endocervical/transformation zone component present. Procedures Date Code Description Status 01/16/2021 99830 Preventive Visit Est 40-64 Yrs C ompleted 04/21/2020 [id number] Mammogram Completed Medical Devices Description No Information Available Encounters Type Date Location Provider Dx Diagnosis Office Visit 01/16/2021 9:00a [facility] decorative greens cutter Roselyn Martinez MD N9 5.0 Postmenopausal bleeding Z01.411 Encntr for geotechnical department manager exam (general ) (routine) w abnormal findings Z12.4 Encounter for screening for malignant neoplasm of cervix Z12.39 Encounter for oth screening for malignant neoplasm of breast Assessments Date Code Description Provider 01/16/2021 N95.0 Postmenopausal bleeding Roselyn Martinez MD 01/16/2021 Z01.411 Encounter for gyneco logical examination (general) (routine) with abnormal findings Roselyn Martinez MD 01/16/2021 Z12.4 Encounter for screening for cristhian gnant neoplasm of cervix Roselyn Martinez MD 01/16/2021 Z12.39 Encounter for other screening for malignant neoplasm of breast Roselyn Martinez MD Plan of Treatment Future Appointment(s):* 05/02/2021 8:45 am - Roselyn Martinez MD at [facility] decorative greens cutter * 04/19/2021 10:00 am - Roselyn Martinez MD at [facility] Or * 01/30/2022 2:15 pm - Roselyn Martinez MD at [facility] decorative greens cutter Functional Status Description No Information Available Mental Status Description No Information Available Referrals Description No Information Available
--- OUTSIDE RECORDS SUMMARY | 2021-04-19 07:41 | CCD | Continuity of Care Document ---
Author Author Caitlyn NIXON M.D. Organization Unknown Address [address] [place] [address] Phone [phone] Problems Active Problems Provider Date Anxiety state JOB Mckee Onset: 01/13/2012 Headache Jayleen Mike D.O. Onset: 2011 Social History Type Date Description Comments Sex Unknown ETOH Use consumes 1-2 glasses of wine per week Tobacco Use Start: Unknown End: Unknown Patient is a former smoker smokes 1 1/2 paks a week - Quit 09/2016 - restarted and quit again 09/2019. Allergies, Adverse Reactions, Alerts Active Allergies Reaction Severity Comments Date Sulfa shortness of breath 01/13/20 12 Medications Active Medications SIG Qnty Indications Ordering Provide r Date Prednisone 20mg Tablets 3 tabs x 3 days, then 2 tabs x3 days then 1 tab x 3 days then 1/2 tab x 4 days. 30tabs Smith Nixno M.D. 09/07/2020 Zanaflex 4mg Capsules by mouth [...] twice a day as needed 1mo Jayleen R. VanDe Wall, D.O. 04/13/2014 Medications Administered in Office Medication SIG Qnty Indications Ordering Provider Date Immunization Each Add'l Vacc/To Injection Jayleen Mike D.O. 1 Immunizations CPT Code Status Date Vaccine Lot # [id number] Given 04/28/2014 Fluvirin Virus Vaccine 53050 01 20359 Given 04/28/2014 Pneumovax 23 [id number] Q2037 Given 04/15/2012 Fluvirin Virus Vaccine Vital [...] Available Procedures Date Code Description Status 10/31/2020 76473 Office/Outpatient Established SF MDM 10-19 Min Completed 02/10/2017 [id number] Mammogram Completed 09/07/2015 28893520 Colonoscopy Completed 11/17/2002 55389993 Mammogram Completed Medical Devices Description No Information Available Encounters Type Date Location Provider Dx Diagnosis Office Visit 10/31/2020 1:40p [facility] 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
--- OUTSIDE RECORDS SUMMARY | 2021-04-19 07:41 | CCD | Continuity of Care Document ---
Author Author Caitlyn CONLEY MD Organization Unknown Address [address] [place] [address] Phone [phone] Care Team Providers Care Radial Drill Press Operator Name Role Phone Smith Carpio MD [facility] [phone] Problems Description No Information Available Social History [...] Available Procedures Date Code Description Status 03/19/2021 17498 Office/Outpatient New Moderate M DM 45-59 Minutes Completed 03/19/2021 65907 X-Ray Spine Lumbosacral Complete Inc Bending Views Min Of 6 Completed 03/19/2021 31185 X-Ray Spine Lumbosacral Complete Inc Bending Views Min Of 6 Completed Medical Devices Description No Information Available Encounters Type Date Location Provider Dx Diagnosis Office Visit 03/19/2021 9:30a [place] Clay Conley MD M47.896 Other spondylosis, lumbar region M54.32 Sciatica, left side Assessments Date Code Description Provider 03/19/2021 M47.896 Other spondylosis, lumbar region Clay Conley MD 03/19/2021 M54.32 Sciatica, left side Clay Mejia rd, MD 03/19/2021 M47.896 Other spondylosis, lumbar region Neena Mixon PA-C Plan of Treatment Future Appointment(s):* 04/11/2021 3:15 pm - Neena Mixon PA-C at [place] 03/19/2021 - Clay Conley MD* M47.896 Other spondylosis, lumbar region* New Medication:* Mobic 7.5 mg - 1 by mouth after meals twice a day * M54.32 Sciatica, left side Functional Status Description No Information Available Mental Status Description No Information Available Referrals Refer to Dr Reason for Referral Status Appt Date Neena Mixon PA-C MRI NO AUTH REQUIRED FOR MRI OF LUMBAR SPINE ([id number]) TO KENNETH Mosqueda [address] [place] [address] [address] [place] [address] [phone]
--- OUTSIDE RECORDS SUMMARY | 2021-04-19 07:41 | CCD ---
Author Author [facility] [employer] Organization [facility] [employer] Address Unknown Phone Unavailable Care Team Providers Care Web Art Director Name Role Phone Jennie Wilhelm Unavailable PROBLEMS No Information ALLERGIES Allergen (clinical drug ingredient) Drug/Non Drug Allergy do cumented on EMR Reaction Allergy Type Onset Date Status sulfacetamide Sulfacetamide Unknown Drug Allergy Active ENCOUNTERS from 1973 to 2021-02-21 Encounter Location Date Provider Diagnosis [facility] Dermatology [address] [place] [address] [place] [address] Feb, Jennie Wilhelm Skin cancer screening Z12.83 ; 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 ; Seborrheic keratoses L82.1 ; 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 and Acral nevus D22.9 IMMUNIZATIONS No Information SOCIAL HISTORY Tobacco Use: Social History Observation Description Date Details (start date - stop date) Never Smoker Sex Assigned At : Social History Observation Description Sex Assigned At Unknown Tobacco Use: Question Answer Notes Are you a: never smoker REASON FOR REFERRAL No Information VITAL SIGNS Weight 129 lbs Feb, Weight-kg 58.51 kg Feb, Height 5'2" in Feb, BMI 23.59 kg/m2 Feb, Blood pressure systolic 132 mm Hg Feb, Blood pressure diastolic 86 mm Hg Feb, MEDICATIONS Medication SIG (Take, Route, Frequency, Duration) Notes Start Da te End Date Status Losartan Potassium 25 MG 1 tablet Orally Once a day for 30 day(s) Active PROCEDURES No Information RESULTS No Results REASON FOR VISIT FBSE MEDICAL (GENERAL) HISTORY Type Description Date Surgical History No Surgical history information Goals Section No Information Health Concerns No Information MEDICAL EQUIPMENT No Information MENTAL STATUS No Information FUNCTIONAL STATUS No Information ASSESSMENTS Encounter Date Diagnosis Assessment Notes Treatment Notes Treatm ent Clinical Notes Feb, Skin cancer screening (ICD-10 - Z12.83) Patient counseled on signs and symptoms of skin cancer including ABCDE's of Melanoma. Patient counseled to wear sunscreen or use sun protective clothing when outdoors. Avoid peak hours of sun between 10-2. Patient instructed to call with any new or changing lesions. 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 The patient was extensively counseled regarding the benign nature of the lesion but that skin cancer may arise in this area just as it would anywhere on their skin. For that reason, return to clinic was recommended for any acute changes, itching, burning, or bleeding. The patient was educated that benign lesions are not a covered insurance benefit and treatment would be elective and cosmetic. They expressed understanding. Feb, Seborrheic keratoses (ICD-10 - L82.1) Benign Lesion Counseling. The patient was extensively counseled regarding the benign nature of the lesion but that skin cancer may arise in this area just as it would anywhere on their skin. For that reason, return to clinic was recommended for any acute changes, itching, burning, or bleeding. The patient was educated that benign lesions are not a covered insurance benefit and treatment would be elective and cosmetic. They expressed understanding. 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 The patient was extensively counseled regarding the benign nature of the lesion but that skin cancer may arise in this area just as it would anywhere on their skin. For that reason, return to clinic was recommended for any acute changes, itching, burning, or bleeding. The patient was educated that benign lesions are not a covered insurance benefit and treatment would be elective and cosmetic. They expressed understanding. Feb, Acral nevus (ICD-10 - D22.9) Benign-appearing today. Reassurance provided, however patient was educated moles can job change crew member time. ABCDE education performed. Patient instructed to return for any changes to the mole to include size, color, itching, burning, or bleeding. PLAN OF TREATMENT Treatment Notes Assessment Notes Clinical Notes Skin cancer screening Patient counseled on signs and symptoms of skin cancer including ABCDE's of Melanoma. Patient counseled to wear sunscreen or use sun protective clothing when outdoors. Avoid peak hours of sun between 10-2. Patient instructed to call with any new or changing lesions. Solar lentiginosis Benign Lesion Counscurry chan. The patient was extensively counseled regarding the benign nature of the lesion but that skin cancer may arise in this area just as it would anywhere on their skin. For that reason, return to clinic was recommended for any acute changes, itching, burning, or bleeding. The patient was educated that benign lesions are not a covered insurance benefit and treatment would be elective and cosmetic. They expressed understanding. Seborrheic keratoses Benign Lesion Couns jolynn. The patient was extensively counseled regarding the benign nature of the lesion but that skin cancer may arise in this area just as it would anywhere on their skin. For that reason, return to clinic was recommended for any acute changes, itching, burning, or bleeding. The patient was educated that benign lesions are not a covered insurance benefit and treatment would be elective and cosmetic. They expressed understanding. Zaidi angioma Benign Lesion Counscurry chan. The patient was extensively counseled regarding the benign nature of the lesion but that skin cancer may arise in this area just as it would anywhere on their skin. For that reason, return to clinic was recommended for any acute changes, itching, burning, or bleeding. The patient was educated that benign lesions are not a covered insurance benefit and treatment would be elective and cosmetic. They expressed understanding. Acral nevus Benign-appearing tod ay. Reassurance provided, however patient was educated moles can job change crew member time. ABCDE education performed. Patient instructed to return for any changes to the mole to include size, color, itching, burning, or bleeding. Next Appt Details 1 Year Reason:FBSE Provider Name:Jennie Wilhelm, 07:30:00 AM, [address] [place] [address], , [place], [place], [facility] [place], Follow Up:1 YearFBSE Insurance Providers Payer Name Payer Address Payer Phone Insured Name Patient Relati onship to Insured Coverage Start Date Coverage End Date [facility] [address] [address] [facility] [id number] [place] [id number]
--- OUTSIDE RECORDS SUMMARY | 2021-04-19 07:41 | CCD | Continuity of Care Document ---
Author Author Caitlyn MARTINEZ Organization Unknown Address [address] [place] [address] Phone [phone] Care Team Providers Care Dot Etcher Apprentice Name Role Phone Smith Carpio M.D. [facility] [phone] Problems Active Problems Provider Date Disorder of menstruation Cassy Pavon WHNP Onset: 012 Social History Type Date Description Comments Sex Unknown Tobacco Use Start: Unknown End: Unknown Quit Smoking Status Reviewed: 01/16/21 Quit ETOH Use Non-smoker, Occasional Drinker, Non-drug User Tobacco Use Start: Unknown End: Unknown Patient is a former smoker Exercise Type/Frequency Exercises regularly Allergies, Adverse Reactions, Alerts Active Allergies Reaction Severity Comments Date Sulfa 09/25/2009 Medications Active Medications SIG Qnty Indications [...] N PART A. Cervical, Endocervical, ThinPrep Pap (Development Professional) CYTOLOGY HX-------- Date of Last Menstrual Period: N Other Information:Previous Normal Pap: 01/05/20 Post-menopausal FINAL DIAGNOSIS---- INTERPRETATION: Negative for Intraepithelial Lesion or Malignancy. SPECIMEN ADEQUACY:Satisfactory for evaluation. Endocervical/transformation zone component present. Procedures Date Code Description Status 01/16/2021 65274 Preventive Visit Est 40-64 Yrs C ompleted 04/21/2020 [id number] Mammogram Completed Medical Devices Description No Information Available Encounters Type Date Location Provider Dx Diagnosis Office Visit 01/16/2021 9:00a [facility] housing court judge Roselyn Martinez MD N9 5.0 Postmenopausal bleeding Z01.411 Encntr for log manager exam (general ) (routine) w abnormal [...] Martinez MD Plan of Treatment Future Appointment(s):* 03/30/2021 2:30 pm - Roselyn Martinez MD at [facility] housing court judge * 01/30/2022 2:15 pm - Roselyn Martinez MD at [facility] housing court judge 01/16/2021 - Roselyn Martinez MD* N95.0 Postmenopausal bleeding* New Xrays:* Pelvic Ultrasound, Ordered: 01/16/21 * Z01.411 Encounter for gynecological examination (general) (routine) with abnormal findings * Z12.4 Encounter for screening for malignant neoplasm of cervix * Z12.39 Encounter for other screening for malignant neoplasm of breast Functional Status Description No Information Available Mental Status Description No Information Available Referrals Description No Information Available
--- OUTSIDE RECORDS SUMMARY | 2021-04-19 07:42 | CCD ---
Author Author [facility] Organization [facility] Address Unknown Phone Unavailable Care Team Providers Care Beck Tender Name Role Phone Lamberto Carpio MD Unavailable Unavailable Lamberto Carpio MD Unavailable Unavailable Lamberto Carpio MD Unavailable Unavailable Lamberto Carpio MD Unavailable Unavailable Lamberto Carpio MD Unavailable Unavailable Lamberto Carpio MD Unavailable Unavailable Lamberto Carpio MD Unavailable Unavailable Lamberto Carpio MD Unavailable Unavailable Lamberto Carpio MD Unavailable Unavailable Lamberto Carpio MD Unavailable Unavailable Lamberto Carpio MD Unavailable Unavailable Lamberto Carpio MD Unavailable Unavailable Lamberto Carpio MD Unavailable Unavailable Lamberto Carpio MD Unavailable Unavailable Lamberto Carpio MD Unavailable Unavailable Lamberto Carpio MD Unavailable Unavailable Lamberto Carpio MD Unavailable Unavailable Lamberto Carpio MD Unavailable Unavailable Lamberto Carpio MD Unavailable Unavailable Lamberto Carpio MD Unavailable Unavailable White F Smith ARREOLA Unavailable Unavailable White F Smith ARREOLA Unavailable Unavailable White F Smith Unavailable Unavailable White F Smith Unavailable Unavailable White F Smith Unavailable Unavailable White F Smith Unavailable Unavailable White F Smith Unavailable Unavailable White F Smith Unavailable Unavailable White, F Smith Unavailable Unavailable White F Smith Unavailable Unavailable White F Smith Unavailable Unavailable White F Smith Unavailable Unavailable White F Smith ARREOLA Unavailable Unavailable White F Smith Unavailable Unavailable White F Smith Unavailable Unavailable White, F Smith Unavailable Unavailable White, F Smith Unavailable Unavailable White, F Smith Unavailable Unavailable White, F Smith Unavailable Unavailable White F Smith Unavailable Unavailable White F Smith Unavailable Unavailable White F Smith Unavailable Unavailable White F Smith ARREOLA Unavailable Unavailable White F Smith ARREOLA Unavailable Unavailable White F Smith ARREOLA Unavailable Unavailable White F Smith ARREOLA Unavailable Unavailable Balaji F Smith ARREOLA Unavailable Unavailable Balaji F Smith ARREOLA Unavailable Unavailable White F Smith ARREOLA Unavailable Unavailable Balaji F Smith ARREOLA Unavailable Unavailable White F Smith ARREOLA Unavailable Unavailable Balaji F Smith ARREOLA Unavailable Unavailable Balaji F Smith ARREOLA Unavailable Unavailable Balaji F Smith ARREOLA Unavailable Unavailable Balaji F Smith ARREOLA Unavailable Unavailable Balaji F Smith ARREOLA Unavailable Unavailable Balaji F Smith ARREOLA Unavailable Unavailable Balaji F Smith ARREOLA Unavailable Unavailable Balaji F Smith ARREOLA Unavailable Unavailable Balaji F Smith ARREOLA Unavailable Unavailable Balaji F Smith ARREOLA Unavailable Unavailable Balaji F Smith ARREOLA Unavailable Unavailable Balaji F Smith ARREOLA Unavailable Unavailable Balaji F Smith ARREOLA Unavailable Unavailable Balaji F Smith ARREOLA Unavailable Unavailable Balaji F Smith ARREOLA Unavailable Unavailable Balaji F Smith ARREOLA Unavailable Unavailable Balaji F Smith ARREOLA Unavailable Unavailable Balaji F Smith ARREOLA Unavailable Unavailable Balaji F Smith ARREOLA Unavailable Unavailable Balaji F Smith ARREOLA Unavailable Unavailable Balaji F Smith ARREOLA Unavailable Unavailable Blaaji F Smith ARREOLA Unavailable Unavailable Balaji F Smith ARREOLA Unavailable Unavailable Balaji F Smith ARREOLA Unavailable Unavailable Balaji F Smith ARREOLA Unavailable Unavailable Balaji F Smith ARREOLA Unavailable Unavailable Chandan MARTINEZ MD Unavailable Unavailable Chandan MARTINEZ MD Unavailable Unavailable Chandan MARTINEZ MD Unavailable Unavailable Chandan MARTINEZ MD Unavailable Unavailable Chandan MARTINEZ MD Unavailable Unavailable MARTINEZ, L DAVID ARREOLA Unavailable Unavailable MARTINEZ, L DAVID ARREOLA Unavailable Unavailable MARTINEZ, L DAVID ARREOLA Unavailable Unavailable MARTINEZ, L DAVID ARREOLA Unavailable Unavailable MARTINEZ, L DAVID ARREOLA Unavailable Unavailable MARTINEZ, L DAVID ARREOLA Unavailable Unavailable MARTINEZ, L DAVID ARREOLA Unavailable Unavailable MARTINEZ, L DAVID ARREOLA Unavailable Unavailable MARTINEZ, L DAVID ARREOLA Unavailable Unavailable MARTINEZ, L DAVID ARREOLA Unavailable Unavailable MARTINEZ, L DAVID ARREOLA Unavailable Unavailable MARTINEZ, L DAVID ARREOLA Unavailable Unavailable MARTINEZ, L DAVID ARREOLA Unavailable Unavailable MARTINEZ, L DAVID ARREOLA Unavailable Unavailable MARTINEZ, L DAVID ARREOLA Unavailable Unavailable MARTINEZ, L DAVID ARREOLA Unavailable Unavailable MARTINEZ, L DAVID ARREOLA Unavailable Unavailable MARTINEZ, L DAVID ARREOLA Unavailable Unavailable MARTINEZ, L DAVID ARREOLA Unavailable Unavailable MARTINEZ, L DAVID ARREOLA Unavailable Unavailable MARTINEZ, L DAVID ARREOLA Unavailable Unavailable MARTINEZ, L DAVID ARREOLA Unavailable Unavailable MARTINEZ, L DAVID ARREOLA Unavailable Unavailable MARTINEZ, L DAVID ARREOLA Unavailable Unavailable MARTINEZ, L DAVID ARREOLA Unavailable Unavailable MARTINEZ, L DAVID ARREOLA Unavailable Unavailable MARTINEZ, L DAVID ARREOLA Unavailable Unavailable MARTINEZ, L DAVID ARREOLA Unavailable Unavailable MARTINEZ, L DAVID ARREOLA Unavailable Unavailable MARTINEZ, L DAVID ARREOLA Unavailable Unavailable MARTINEZ, L DAVID ARREOLA Unavailable Unavailable MARTINEZ, L DAVID ARREOLA Unavailable Unavailable MARTINEZ, L DAVID ARREOLA Unavailable Unavailable MARTINEZ, L DAVID ARREOLA Unavailable Unavailable MARTINEZ, L DAVID ARREOLA Unavailable Unavailable MARTINEZ, L DAVID ARREOLA Unavailable Unavailable MARTINEZ, L DAVID ARREOLA Unavailable Unavailable MARTINEZ, L DAVID ARREOLA Unavailable Unavailable MARTINEZ, L DAVID ARREOLA Unavailable Unavailable MARTINEZ, L DAVID ARREOLA Unavailable Unavailable PICKERAL JR, J RONEL PA-C Unavailable Unavailable PICKERAL JR, J RONEL PA-C Unavailable Unavailable PICKERAL JR, J RONEL PA-C Unavailable Unavailable PICKERAL JR, J RONEL PA-C Unavailable Unavailable PICKERAL JR, J RONEL PA-C Unavailable Unavailable PICKERAL JR, J RONEL PA-C Unavailable Unavailable PICKERAL JR, J RONEL PA-C Unavailable Unavailable PICKERAL JR, J RONEL PA-C Unavailable Unavailable PICKERAL JR, J RONEL PA-C Unavailable Unavailable PICKERAL JR, J RONEL PA-C Unavailable Unavailable PICKERAL JR, J RONEL PA-C Unavailable Unavailable PICKERAL JR, J RONEL PA-C Unavailable Unavailable PICKERAL JR, J RONEL PA-C Unavailable Unavailable PICKERAL JR, J RONEL PA-C Unavailable Unavailable PICKERAL JR, J RONEL PA-C Unavailable Unavailable PICKERAL JR, J RONEL PA-C Unavailable Unavailable PICKERAL JR, J RONEL PA-C Unavailable Unavailable PICKERAL JR, J RONEL PA-C Unavailable Unavailable PICKERAL JR, J RONEL PA-C Unavailable Unavailable PICKERAL JR, J RONEL PA-C Unavailable Unavailable PICKERAL JR, J RONEL PA-C Unavailable Unavailable PICKERAL JR, J RONEL PA-C Unavailable Unavailable PICKERAL JR, J RONEL PA-C Unavailable Unavailable PICKERAL JR, J RONEL PA-C Unavailable Unavailable PICKERAL JR, J RONEL PA-C Unavailable Unavailable PICKERAL JR, J RONEL PA-C Unavailable Unavailable PICKERAL JR, J RONEL PA-C Unavailable Unavailable RamseyChandan mann MD Unavailable Unavailable RamseyChandan MD Unavailable Unavailable Ramsey, Chandan Williamson MD Unavailable Unavailable RamseyChandan MD Unavailable Unavailable RamseyChandan mann MD Unavailable Unavailable RamseyChandan mann MD Unavailable Unavailable RamseyChandan mann MD Unavailable Unavailable RamseyChandan MD Unavailable Unavailable RamseyChandan MD Unavailable Unavailable RamseyChandan MD Unavailable Unavailable RamseyChandan MD Unavailable Unavailable RamseyChandan MD Unavailable Unavailable RamseyChandan mann MD Unavailable Unavailable RamseyChandan mann MD Unavailable Unavailable RamseyChandan MD Unavailable Unavailable RamseyChandan MD Unavailable Unavailable RamseyChandan MD Unavailable Unavailable RamseyChandan MD Unavailable Unavailable RamseyChandan mann MD Unavailable Unavailable RamseyChandan mann MD Unavailable Unavailable Chandan Ramsey MD Unavailable Unavailable RamseyChandan mann MD Unavailable Unavailable RamseyChandan mann MD Unavailable Unavailable RamseyChandan MD Unavailable Unavailable RamseyChandan MD Unavailable Unavailable RamseyChandan MD Unavailable Unavailable RamseyChandan MD Unavailable Unavailable RamseyChandan mann MD Unavailable Unavailable RamseyChandan mann MD Unavailable Unavailable RamseyChandan mann MD Unavailable Unavailable RamseyChandan mann MD Unavailable Unavailable Chandan Ramsey MD Unavailable Unavailable RamseyChandan mann MD Unavailable Unavailable Chandan Ramsey MD Unavailable Unavailable Chandan Ramsey MD Unavailable Unavailable Chandan Ramsey MD Unavailable Unavailable Chandan Ramsye MD Unavailable Unavailable Chandan Ramsey MD Unavailable Unavailable Chandan Ramsey MD Unavailable Unavailable Chandan Ramsey MD Unavailable Unavailable Chandan Ramsey MD Unavailable Unavailable RamseyChandan mann MD Unavailable Unavailable RamseyChandan mann MD Unavailable Unavailable RamseyChandan mann MD Unavailable Unavailable Chandan Ramsey MD Unavailable Unavailable Chandan Ramsey MD Unavailable Unavailable Chandan Ramsey MD Unavailable Unavailable RamseyChandan MD Unavailable Unavailable RamseyChandan MD Unavailable Unavailable Dille, E Keisha DDS Unavailable Unavailable Dille, E Keisha DDS Unavailable Unavailable Dille, E Keisha DDS Unavailable Unavailable Dille, E Keisha DDS Unavailable Unavailable Mixon, M Barratt PA Unavailable Unavailable Mixon, M Barratt PA Unavailable Unavailable Mixon, M Barratt PA Unavailable Unavailable Mixon, M Barratt PA Unavailable Unavailable Mixon, M Barratt PA Unavailable Unavailable Mixon, M Barratt PA Unavailable Unavailable Mixon, M Barratt PA Unavailable Unavailable Mixon, M Barratt PA Unavailable Unavailable Mixon, M Barratt PA Unavailable Unavailable Mixon, M Barratt PA Unavailable Unavailable Mixon, M Barratt PA Unavailable Unavailable Mixon, M Barratt PA Unavailable Unavailable Mixon, M Barratt PA Unavailable Unavailable Mixon, M Barratt PA Unavailable Unavailable Mixon, M Barratt PA Unavailable Unavailable Mixon, M Barratt PA Unavailable Unavailable Mixon, M Barratt PA Unavailable Unavailable Mixon, M Barratt PA Unavailable Unavailable Mixon, M Barratt PA Unavailable Unavailable Mixon, M Barratt PA Unavailable Unavailable Mixon, M Barratt PA Unavailable Unavailable Mixon, M Barratt PA Unavailable Unavailable Mixon, M Barratt PA Unavailable Unavailable Mixon, M Barratt PA Unavailable Unavailable Mixon, M Barratt PA Unavailable Unavailable Mixon, M Barratt PA Unavailable Unavailable Mixon, M Barratt PA Unavailable Unavailable Mixon, M Barratt PA Unavailable Unavailable Mixon, M Barratt PA Unavailable Unavailable Lockerbie, S Karime SUPERVISOR PHOTOCOMPOSITION-C Unavailable Unavailable Lockerbie, S Karime SUPERVISOR PHOTOCOMPOSITION-C Unavailable Unavailable Lockerbie, S Karime SUPERVISOR PHOTOCOMPOSITION-C Unavailable Unavailable Lockerbie, S Karime SUPERVISOR PHOTOCOMPOSITION-C Unavailable Unavailable Lockerbie, S Karime SUPERVISOR PHOTOCOMPOSITION-C Unavailable Unavailable Lockerbie, S Karime SUPERVISOR PHOTOCOMPOSITION-C Unavailable Unavailable Lockerbie, S Karime SUPERVISOR PHOTOCOMPOSITION-C Unavailable Unavailable Lockerbie, S Karime SUPERVISOR PHOTOCOMPOSITION-C Unavailable Unavailable Lockerbie, S Karime SUPERVISOR PHOTOCOMPOSITION-C Unavailable Unavailable Lockerbie, S Karime SUPERVISOR PHOTOCOMPOSITION-C Unavailable Unavailable Lockerbie, S Karime SUPERVISOR PHOTOCOMPOSITION-C Unavailable Unavailable Lockerbie, S Karime SUPERVISOR PHOTOCOMPOSITION-C Unavailable Unavailable Lockerbie, S Karime SUPERVISOR PHOTOCOMPOSITION-C Unavailable Unavailable Lockerbie, S Karime SUPERVISOR PHOTOCOMPOSITION-C Unavailable Unavailable Lockerbie, S Karime SUPERVISOR PHOTOCOMPOSITION-C Unavailable Unavailable Lockerbie, S Karime SUPERVISOR PHOTOCOMPOSITION-C Unavailable Unavailable Lockerbie, S Karime SUPERVISOR PHOTOCOMPOSITION-C Unavailable Unavailable Lockerbie, S Karime SUPERVISOR PHOTOCOMPOSITION-C Unavailable Unavailable Lockerbie, S Karime SUPERVISOR PHOTOCOMPOSITION-C Unavailable Unavailable Lockerbie, S Karime SUPERVISOR PHOTOCOMPOSITION-C Unavailable Unavailable Lockerbie, S Karime SUPERVISOR PHOTOCOMPOSITION-C Unavailable Unavailable Lockerbie, S Karime SUPERVISOR PHOTOCOMPOSITION-C Unavailable Unavailable Lockerbie, S Karime SUPERVISOR PHOTOCOMPOSITION-C Unavailable Unavailable Lockerbie, S Karime SUPERVISOR PHOTOCOMPOSITION-C Unavailable Unavailable Re-disclosure Warning The records that you are about to access may contain information from federally-assisted alcohol or drug abuse programs. If such information is present, then the following federally mandated warning applies: This information has been disclosed to you from records protected by federal confidentiality rules (42 CFR part 2). The federal rules prohibit you from making any further disclosure of this information unless further disclosure is expressly permitted by the written consent of the person to whom it pertains or as otherwise permitted by 42 CFR part 2. A general authorization for the release of medical or other information is NOT sufficient for this purpose. The Federal rules restrict any use of the information to criminally investigate or prosecute any alcohol or drug abuse patient.The records that you are about to access may contain highly sensitive health information, the redisclosure of which is protected by Article 27-F of the [facility] Public Health law. If you continue you may have access to information: Regarding HIV / AIDS; Provided by facilities licensed or operated by the [facility] Office of Mental Health; or Provided by the [facility] Office for People With Developmental Disabilities. If such information is present, then the following [facility] mandated warning applies: This information has been disclosed to you from confidential records which are protected by state law. State law prohibits you from making any further disclosure of this information without the specific written consent of the person to whom it pertains, or as otherwise permitted by law. Any unauthorized further disclosure in violation of state law may result in a fine or mcfp sentence or both. A general authorization for the release of medical or other information is NOT sufficient authorization for further disc losure. Family History Family Member Name Family Member Gender Family Member Status Date o f Status Description Data Source(s) Unknown Unknown Problem [facility] (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) Unknown Male Problem [facility] ([facility]) Unknown Unknown Problem [facility] ([facility]) Unknown Unknown Problem [facility] ([facility]) Unknown Unknown Problem [facility] ([facility]) father Encounters Encounter Providers Location Date Indications Data Source(s ) Outpatient Attender: Neena ANGELO Physical Therapy 03:15:00 PM EDT [facility] ([facility]) Outpatient Attender: 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 [facility] 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[employer] 02:30:00 PM EDT [facility] (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) Outpatient Attender: Clay Ramsey MD Physical Therapy 03/19/2021 0 9:30:00 AM EDT [facility] ([facility]) Outpatient [facility] [id number] 02/19/2021 12:00:00 AM EDT eCW1 ([facility]) Outpatient Attender: Smith Ramos 02/12 09:00:00 AM EDT [facility] ([facility] ) Outpatient Attender: DAVID [facility] 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[employer] and [employer] 09:00:00 AM EDT [facility] (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) Outpatient Attender: Karime Rob SUPERVISOR PHOTOCOMPOSITION-C Main Office 11/21/2020 08:00:00 AM EDT [facility] ([facility]) Outpatient Attender: RONEL Ramos 0 10/31/2020 01:40:00 PM EDT [facility] ([facility] ) Outpatient Attender: Smith Ramos 08/14 08:00:00 AM EST [facility] ([facility] ) Outpatient Attender: Smith Ramos 05/09 07:30:00 AM EST [facility] ([facility] ) Outpatient Attender: Keisha Gaona RAYGayathri WATEDUARDO 03/21/2020 10:46:05 A M EDT [facility] Outpatient Attender: Keisha Gaona DDS [facility] 03/21/2020 07:13:03 A M EDT [facility] Outpatient Attender: Keisha Gaona DDS [facility] 03/20/2020 03:42:01 P M EDT [facility] Outpatient Attender: Keisha Gaona DDS [facility] 03/20/2020 03:41:03 P M EDT [facility] Outpatient Attender: Keisha Gaona DDS [facility] 03/20/2020 03:13:01 P M EDT [facility] Immunizations Vaccine Date Status Description Data Source(s) COVID-19 VACCINE Pfizer 10/06/2020 12:00:00 AM EDT completed [facility] Vaccine Series Complete: YESThis Data wa s Submitted to [facility] Via [facility]. COVID-19 VACCINE Pfizer 09/15/2020 12:00:00 AM EST completed [facility] Vaccine Series Complete: NOThis Data was Submitted to [facility] Via [employer]. Medications Medication Brand Name Start Date Product Form Dose Route Admi nistrative Instructions Pharmacy Instructions Status Indications Reaction Description Data Source(s) meloxicam 7.5 MG Oral Tablet MELOXICAM 03/19/2021 12:00:00 AM EDT tabl et 60 TAKE ONE TABLET BY MOUTH TWICE A DAY WITH FOOD TAKE ONE TABLET BY MOUTH TWICE A DAY WITH FOOD SOLD: 03/23/2021 [facility] meloxicam 7.5 MG Oral Tablet [Mobic] Mobic 03/19/2021 12:00:00 AM EDT ORAL active [facility] ([facility]) 600 mg 12/13/2020 12:00:00 AM EDT tablet 20 TAKE ONE TABLET BY MOUTH FOUR TIMES A DAY NEEDED TAKE ONE TABLET BY MOUTH FOUR TIMES A DAY NEEDED SO LD: 12/13/2020 [facility] Acetaminophen 325 MG / Hydrocodone Bitartrate 5 MG Ora l Tablet 5-325 mg HYDROCODONE/ACETAMINOPHEN 12/13/2020 12:00:00 AM EDT tablet 10 TAKE ONE TABLET BY MOUTH EVERY 4 TO 6 HOURS NEEDED FOR PAIN MAXIMUM DAILY DOSE = FIVE TABLETS TAKE ONE TABLET BY MOUTH EVERY 4 TO 6 HO URS NEEDED FOR PAIN MAXIMUM DAILY DOSE = FIVE TABLETS SOLD: 12/13/2020 [facility] 500 mg 12/13/2020 12:00:00 AM EDT capsule 15 TAKE ONE CAPSULE BY MOUTH EVERY 8 HOURS TAKE ONE CAPSULE BY MOUTH EVERY 8 HOURS SOLD: 12/13/2020 [facility] Prednisone 20 MG Oral Tablet Prednisone 09/07/2020 12:00:00 AM EST completed [facility] ([facility]) tizanidine 4 MG Oral Capsule [Zanaflex] Zanaflex 09/07/2020 12:00:0 0 AM EST ORAL active [facility] ([facility]) 4 mg 09/07/2020 12:00:00 AM EST capsule 30 TAKE ONE CAPSULE BY MOUTH EVERY 6 HOURS NEEDED FOR MUSCLE SPASM TAKE ONE CAPSULE BY MOUTH EVERY 6 HOURS NEEDED FOR MUSCLE SPASM SOLD: 09/14/2020 [facility] 20 mg 09/07/2020 12:00:00 AM EST tablet 30 TAKE THREE TABLETS BY MOUTH EVERY DAY FOR 3 DAYS THEN 2 ONCE DAILY FOR 3 DAYS THEN 1 ONCE DAILY FOR 3 DAYS THEN 1/2 TABLET ONCE DAILY FOR 4 DAYS TAKE THREE TABLETS BY MOUTH EVERY DAY FO R 3 DAYS THEN 2 ONCE DAILY FOR 3 DAYS THEN 1 ONCE DAILY FOR 3 DAYS THEN 1/2 TABLET ONCE DAILY FOR 4 DAYS SOLD: 09/14/2020 [facility] 50 mg 08/05/2020 12:00:00 AM EST tablet 90 TAKE ONE TABLET BY MOUTH EVERY DAY TAKE ONE TABLET BY MOUTH EVERY DAY SOLD: 01/10/2021 [facility] 50 mg 08/05/2020 12:00:00 AM EST tablet 90 TAKE ONE TABLET BY MOUTH EVERY DAY TAKE ONE TABLET BY MOUTH EVERY DAY SOLD: 08/07/2020 [facility] Omeprazole 20 MG Delayed Release Oral Tablet Omeprazole 05/09/2020 12:00:00 AM EST ORAL active [facility] ([facility]) 50 mg 02/24/2020 12:00:00 AM EDT tablet 90 TAKE ONE TABLET BY MOUTH EVERY DAY TAKE ONE TABLET BY MOUTH EVERY DAY SOLD: 02/24/2020 [facility] Insurance Providers Payer name Policy type / Coverage type Policy ID Covered republican ID Covered republican's relationship to alcantar Policy Alcantar Plan Information BCBS [place] 304/[id number] SP [id number] [place] Commercial [id number] Self [place] Trad/[place] Medigap Part B [id number] Self [id number] BS [place] Trad/[place] Medigap Part B [id number] Self [id number] BS [place] Trad/[place] Commercial [id number] Self [place] P[place] 302/307 [id number] SP [id number] BS [employer] Commercial [id number] Self [id number] [place] Trad/[place] Medigap Part B [id number] Self [id number] BS [place] Trad/MX Medigap Part B [id number] Self [id number] BS [employer] Commercial [id number] Self [id number] [place] Trad/[place] Commercial [id number] Self [place] Trad/[place] Commercial [id number] Self Federal BC/BS Commercial [id number] Family Dependent [id number] Federal BC/BS Commercial [id number] Family Dependent [facility] [id number] BS Fep Commercial [id number] Family Dependent [id number] BS Fep Commercial [id number] Family Dependent [id number] [place] [employer] and Blue Shield [place] Blue Cross/B lue Shield [id number] Spouse [id number] RPR- Needs Payer Match [id number] Spouse [id number] BCBS Federal Plan Commercial [id number] Family Dependent BCBS FEDERAL EMPLOYEE PROGRAM [id number] [id number] SELF PAY UNAVAILABLE UNAVAILA BLE [id number] BCBS FEDERAL EMPLOYEE PROGRAM [id number] HU2 [id number] [place] PPO 302/307 [id number] SP [id number] [place] PPO 302/307 [id number] SP [id number] BCBS [facility] 220/720 [id number] SP [id number] BC BS [place] FEDERAL B [id number] O [id number] BCBS Federal P [id number] S [id number] D [employer] S [id number] S [id number] BS [employer] Medigap Part B [id number] Self [id number] [place] PPO 302/307 [id number] SP [id number] SELF PAY ONLY [id number] SP [id number] BCBS Federal Dental P [id number] S [id number] BCBS FEDERAL EMPLOYEE PROGRAM [id number] HU2 [id number] [place] PPO 302/307 [id number] SP [id number] BS [employer] Commercial [id number] Self [id number] [place] BCBS P [id number] S [id number] BCBS Federal Plan Commercial [id number] Family Dependent [id number] [place] BCBS FEDERAL [id number] [facility] [id number] Problems, Conditions, and Diagnoses No Information Surgeries/Procedures Procedure Description Date Indications Data Source(s) OFFICE OUTPATIENT VISIT 25 MINUTES 04/11/2021 12:00:00 AM EDT [facility] ([facility]) OFFICE OUTPATIENT VISIT 25 MINUTES 03/30/2021 12:00:00 AM EDT [facility] (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) X-Ray Spine Lumbosacral Complete Inc Bending Views Min Of 6 03/19/2021 12:00:00 AM EDT [facility] ([facility]) X-Ray Spine Lumbosacral Complete Inc Bending Views Min Of 6 03/19/2021 12:00:00 AM EDT [facility] ([facility]) OFFICE OUTPATIENT NEW 45 MINUTES 03/19/2021 12:00:00 A M EDT [facility] ([facility]) PERIODIC PREVENTIVE MED EST PATIENT 40-64YRS 1 12:00:00 AM EDT [facility] ([facility]) PERIODIC PREVENTIVE MED EST PATIENT 40-64YRS 1 12:00:00 AM EDT [facility] ([facility]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) DESTRUCTION PREMALIGNANT LESION 1ST 11/21/2020 12:00:0 0 AM EDT [facility] ([facility]) DESTRUCTION PREMALIGNANT LESION 2-14 EA 11/21/2020 12: 00:00 AM EDT [facility] ([facility]) OFFICE OUTPATIENT NEW 45 MINUTES 11/21/2020 12:00:00 A M EDT [facility] ([facility]) OFFICE OUTPATIENT VISIT 10 MINUTES 10/31/2020 12:00:00 AM EDT MEDENT ([facility]) Mammogram 04/21/2020 12:00:00 AM EDT M EDENT ([facility]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) Results ID Date Data Source [id number] 03/26/2021 08:30:00 PM EDT [facility] Name Value Range Interpretation Code Description Data Katlin rce(s) Supporting Document(s) SARS-CoV-2 RNA Resp Ql EFRAÍN+probe NOT DETECTED [facility] This lab was ordered by YEMI johnson and reported by YEMI Kennedy. ID Date Data Source [id number] 02/12/2021 10:04:00 AM EDT MED[facility] ([facility]) Name Value Range Interpretation Code Description Data Katlin rce(s) Supporting Document(s) Cholesterol [Mass/volume] in Serum or Plasma 250 mg/dL 131-200 [facility] ([facility]) Cholesterol in HDL [Mass/volume] in Serum or Plasma 63 mg/dL 35-60 [facility] ([facility]) Triglyceride [Mass/volume] in Serum or Plasma 106 mg/dL 30-150 [facility] ([facility]) Cholesterol in LDL [Mass/volume] in Serum or Plasma by calcu lation 166 CALC 50-159 [facility] ([facility]) ID Date Data Source [id number] 02/12/2021 10:04:00 AM ED [facility] Name Value Range Interpretation Code Description Data Katlin rce(s) Supporting Document(s) Glucose [Mass/volume] in Serum or Plasma 78 mg/dL 74-99 [facility] ([facility]) 100-125 mg/dL PRE-DIABETES/FASTING >126 mg/dL DIABETES/FASTING Urea nitrogen [Mass/volume] in Serum or Plasma 13 mg/dL 7-18 [facility] ([facility]) Creatinine 0.7 mg/dL 0.6-1.3 [facility] ([facility]) Sodium [Moles/volume] in Serum or Plasma 140 meq/L 136-145 [facility] ([facility]) Potassium [Moles/volume] in Serum or Plasma 4.4 meq/L 3.5-5.1 [facility] ([facility]) Chloride [Moles/volume] in Serum or Plasma 101 meq/L 98-107 [facility] ([facility]) Carbon dioxide, total [Moles/volume] in Serum or Plasma 33 meq/L 21 -32 [facility] ([facility]) Calcium [Mass/volume] in Serum or Plasma 9.5 mg/dL 8.5-10.1 [facility] ([facility]) Alkaline phosphatase isoenzyme [Units/volume] in Serum or Pl asma 49 mg/dL 46-116 [facility] ([facility]) Total Bilirubin 0.7 mg/dL 0.2-1.0 [facility] ([facility]) Aspartate aminotransferase [Enzymatic activity/volume] in Serum or Plasma 22 U/L 15-37 [facility] ([facility] ) Albumin [Mass/volume] in Serum or Plasma 4.7 g/dL 3.4-5.0 [facility] ([facility]) Alanine aminotransferase [Enzymatic activity/volume] in Seru m or Plasma 24 U/L 12-78 [facility] ([facility]) Proteinase 3 Ab [Units/volume] in Serum 7.5 g/dL 6.4-8.2 [facility] ([facility]) A/G Ratio 1.68 CALC 1.00-1.90 [facility] ([facility]) Glomerular filtration rate/1.73 sq M pre dicted among blacks [Volume Rate/Area] in Serum or Plasma by Creatinine-based formula (MDRD) Laboratory test result [facility] <content>CHRONIC KIDNEY DISEASE STAGING PER NKF</content>
<content></content>
<content>STAGE I & II GFR >= 60 NORMAL TO MILDLY DECREASED</content>
<content>STAGE III GFR 30-59 MODERATELY DECREASED</content>
<content>STAGE IV GFR 15-29 SEVERELY DECREASED</content>
<content>STAGE V GFR <15 VERY LITTLE GFR LEFT</content>
<content>ESRD GFR <15 ON LEGAL RECORDS CLERK</content>
<content></content> Glomerular filtration rate/1.73 sq M pre dicted among non-blacks [Volume Rate/Area] in Serum or Plasma by Creatinine-based formula (MDRD) Laboratory test result [facility] ([facility] ) ID Date Data Source [id number] 01/16/2021 12:00:00 PM EDT [facility] ([facility]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) Name Value Range Interpretation Code Description Data Katlin rce(s) Supporting Document(s) TP Reflex HPV ASCUS Laboratory test result [facility] ([facility]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) TP Reflex HPV ASCUS Laboratory test result [facility] ([facility]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) SPECIMEN PART------ A. Cervical, Endocervical, ThinPrep Pap (Denial Management Representative) CYTOLOGY HX-------- Date of Last Menstrual Period: N Other Information:Previous Normal Pap: 01/05/20 Post-menopausal FINAL DIAGNOSIS---- INTERPRETATION: Negative for Intraepithelial Lesion or Malignancy. SPECIMEN ADEQUACY:Satisfactory for evaluation. Endocervical/transformation zone component present. ID Date Data Source [id number] 08/14/2020 10:08:00 AM EST [facility] ([facility]) Name Value Range Interpretation Code Description Data Katlin rce(s) Supporting Document(s) Thyrotropin [Units/volume] in Serum or Plasma by Detec tion limit <= 0.05 mIU/L 0.45 uIU/mL 0.36-3.74 [facility] ([facility] ) ID Date Data Source [id number] 08/14/2020 10:08:00 AM EST [facility] ([facility]) Name Value Range Interpretation Code Description Data Katlin rce(s) Supporting Document(s) Cholesterol [Mass/volume] in Serum or Plasma 254 mg/dL 131-200 [facility] ([facility]) Triglyceride [Mass/volume] in Serum or Plasma 124 mg/dL 30-150 [facility] ([facility]) Cholesterol in HDL [Mass/volume] in Serum or Plasma 67 mg/dL 35-60 [facility] ([facility]) Cholesterol in LDL [Mass/volume] in Serum or Plasma by calcu lation 162 CALC 50-159 [facility] ([facility]) ID Date Data Source [id number] 08/14/2020 10:08:00 AM EST [facility] Name Value Range Interpretation Code Description Data Katlin rce(s) Supporting Document(s) Glucose [Mass/volume] in Serum or Plasma 83 mg/dL 74-99 [facility] ([facility]) 100-125 mg/dL PRE-DIABETES/FASTING >126 mg/dL DIABETES/FASTING Urea nitrogen [Mass/volume] in Serum or Plasma 14 mg/dL 7-18 [facility] ([facility]) Sodium [Moles/volume] in Serum or Plasma 142 meq/L 136-145 [facility] ([facility]) Creatinine 0.6 mg/dL 0.6-1.3 [facility] ([facility]) Chloride [Moles/volume] in Serum or Plasma 103 meq/L 98-107 [facility] ([facility]) Carbon dioxide, total [Moles/volume] in Serum or Plasma 28 meq/L 21 -32 [facility] ([facility]) Potassium [Moles/volume] in Serum or Plasma 4.2 meq/L 3.5-5.1 [facility] ([facility]) Calcium [Mass/volume] in Serum or Plasma 9.3 mg/dL 8.5-10.1 [facility] ([facility]) Alkaline phosphatase isoenzyme [Units/volume] in Serum or Pl asma 59 mg/dL 46-116 [facility] ([facility]) Total Bilirubin 0.8 mg/dL 0.2-1.0 [facility] ([facility]) Aspartate aminotransferase [Enzymatic activity/volume] in Serum or Plasma 20 U/L 15-37 [facility] ([facility] ) Alanine aminotransferase [Enzymatic activity/volume] in Seru m or Plasma 22 U/L 12-78 [facility] ([facility]) Albumin [Mass/volume] in Serum or Plasma 4.7 g/dL 3.4-5.0 [facility] ([facility]) A/G Ratio 1.57 CALC 1.00-1.90 [facility] Proteinase 3 Ab [Units/volume] in Serum 7.7 g/dL 6.4-8.2 [facility] ([facility]) Glomerular filtration rate/1.73 sq M pre dicted among blacks [Volume Rate/Area] in Serum or Plasma by Creatinine-based formula (MDRD) Laboratory test result [facility] <content>CHRONIC KIDNEY DISEASE STAGING PER NKF</content>
<content></content>
<content>STAGE I & II GFR >= 60 NORMAL TO MILDLY DECREASED</content>
<content>STAGE III GFR 30-59 MODERATELY DECREASED</content>
<content>STAGE IV GFR 15-29 SEVERELY DECREASED</content>
<content>STAGE V GFR <15 VERY LITTLE GFR LEFT</content>
<content>ESRD GFR <15 ON LEGAL RECORDS CLERK</content>
<content></content> Glomerular filtration rate/1.73 sq M pre dicted among non-blacks [Volume Rate/Area] in Serum or Plasma by Creatinine-based formula (MDRD) Laboratory test result [facility] ([facility] ) ID Date Data Source [id number] 08/14/2020 10:08:00 AM EST [facility] Name Value Range Interpretation Code Description Data Katlin rce(s) Supporting Document(s) Leukocytes [#/volume] in Blood by Automated count 5.9 x10*3/UL 4.1-10 .9 [facility] Erythrocytes [#/volume] in Blood by Automated count 4.36 x10*6/UL 4.2 0-6.30 [facility] ([facility]) Hemoglobin [Mass/volume] in Blood 13.7 g/dL 12.0-18.0 [facility] Hematocrit [Volume Fraction] of Blood by Automated count 39.0 % 3 7.0-51.0 [facility] ([facility]) MCV 89.4 fL 80.0-97.0 [facility] MCH 31.5 pg 26.0-32.0 [facility] Erythrocyte distribution width [Ratio] by Automated count 12.2 % 11.6-13.7 [facility] ([facility]) MCHC 35.2 g/dL 31.0-38.0 [facility] Platelets [#/volume] in Blood by Automated count 229 x10*3/UL 140-440 [facility] MPV 9.4 FL 7.8-11.0 [facility] Mid % 6.6 % 1.7-9.3 [facility] Lymph % 30.2 % 10.0-58.5 [facility] Lymph # 1.7 x10*3/UL 0.6-4.1 [facility] ([facility]) Neut % 63.2 % 37.0-92.0 [facility] Mid # 0.5 x10*3/UL 0.1-0.6 [facility] ([facility]) Neut # 3.7 x10*3/UL 2.0-7.8 [facility] ([facility]) ID Date Data Source [id number] 06/28/2020 12:00:00 AM EST [facility] Name Value Range Interpretation Code Description Data Katlin rce(s) Supporting Document(s) SARS coronavirus 2 Ag [facility] This lab was ordered by [facility] and reported by [facility]. ID Date Data Source [id number] 06/13/2020 12:00:00 AM EST [facility] Name Value Range Interpretation Code Description Data Katlin rce(s) Supporting Document(s) 2019-nCoV RNA XXX EFRAÍN+probe-Imp [facility] This lab was ordered by [facility] and reported by [facility]. ID Date Data Source [id number] 04/21/2020 12:00:00 AM EDT [facility] oly Imaging David Martinez MD Patient Name:COMPA DENG[address] [place] [address] Date of : 1975[place] [address] Date of Exam: 04/21/2020PH#: Fax: [phone] EXAM: MAMMO SCREENING WITH CADCLINICAL INFORMATION: Screening.Based on the personal and family history information your patient suppliedat the time of imaging, her lifetime risk of breast cancer estimated by theTyrer-Cuzick model is 7.1%. Given that this patient has less than 20% TCrisk score, no further medical management is currently recommended at thistime.Digital screening (2D) mammography was performed bilaterally in the CC andMLO projections. Additionally, breast tomosynthesis (3D mammography) wasperformed bilaterally in the CC and MLO projections. Today's exam wascompared to the prior exam(s).By history, the patient has no complaints of a palpable breast abnormalityor other significant breast complaints.The patient states last clinical breast exam was in January of 2020.The breasts are unchanged in size and shape. Once again, denseheterogeneous fibroglandular elements are seen bilaterally in a stableappearing pattern but to such a degree that the sensitivity of themammogram in detecting cancer is decreased. There are no archana-soft tissued ensities or spiculated masses. There is no internal architecturaldistortion. There are no suspicious archana-calcific clusters. Skinthickening or nipple retraction is not present. Benign calcifications areagain seen bilaterally.The Volpara volumetric breast density category is D, the breasts areextremely dense which lowers the sensitivity of mammography.IMPRESSION:BI-RADS Category 2 - Benign Finding(s). Stable mammogram. There is noevidence of malignant alteration of the breasts. Followup examinationrecommended in one year.This mammogram was read with the assistance of [employer], an FDAapproved computer aided detection system for mammography.Negative x-ray reports should not delay surgical consultation if a dominantor clinically suspicious mass is present.Not all breast cancers can be identified by mammography. Therefore, werecommend that you continue to perform regular breast self-examination andphysical examination and then promptly contact your physician of anyconcerns or changes.Adenosis and dense breasts may obscure an underlying neoplasm.HAYLIE Pond/David you for referring COMPA DENG to our office. Electronically Signed - RANI BRYANT DO 04/24/20 9:36 Name Value Range Interpretation Code Description Data Katlin rce(s) Supporting Document(s) ID Date Data Source [id number] 03/20/2020 03:40:21 PM EDT [facility] Vital SignsBlood Pressure: 146/86 Patient History Medical History:HypertensionFamily History:Social/Personal History: Smoking Status: current every day smokerCurrent Problems: Deal teeth impaction (ICD-520.6) (BAS45-M05.1)Problem list reviewed during this update.Current Medications: * LOSARTIN Medication list reviewed during this update.Current Allergies: * SULFA (Critical)Allergy list reviewed during this update.Past Medical History:(reviewed - no changes required) Hypertension Dental Chart: Procedures:Type - CDT Code - Description B - (D0274) Bitewings, 4 radiographic images (Performed by Cora Gamboa RDH) B - (D0120) Periodic oral evaluation - established patient (Performed by Cora Gamboa RDH) B - (D1110) Prophylaxis, adult (Performed by Cora Gamboa RDH) Chart Notes:beni (Mar 21 2020 10:45AM): [facility](-). CC: none. Reviewed Xrays. Exam: no caries detected. OCS: WNL, IO/ EO completed, No significant hard findings upon clinical exam.Additional PPE requirements due to COVID-19 in the dental setting, N95, surgical mask, hair covering, gown and shieldPt was cooperative. OHI given Referral: N/A NV:recallCora Gamboa RDH by beni (03/21/2020 10:45 AM): ; brittany (Mar 20 2020 4:19PM): [facility] with patient- No changes. She feels like her recession is getting worse. Adult prophy- handscaled, ukrainian- mint prophy paste, floss, 4 BW'sOH-Patient brushes twice/day and NOT flossing regularlyLT gen marginal biofilm and marginal/introproximal calculus on LA. Marginal tissue is pink with light bleeding on scaling. OHI- Advise to brush 2x a day and floss lane ryday. Went over proper flossing everyday due to not flossing. Also brushing softer along the gum line softer due to recession. Patient is cooperative. NV- 6 month recallCora Gamboa RDH by brittany (03/20/2020 4:19 PM): Tooth Notes and Watches: Assessment & Plan Medications:LOSARTINAllergies:* SULFA (Critical) Name Value Range Interpretation Code Description Data Katlin rce(s) Supporting Document(s) Procedure Social History Code Duration Value Status Description Data Source(s ) Smoking 03/30/2021 12:00:00 AM EDT Quit completed Quit [facility] ([facility]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) Smoking 02/19/2021 12:00:00 AM EDT Never Smoker completed Never S ruth ann eCW1 ([facility]) Vital Signs ID Date Data Source UNK Name Value Range Interpretation Code Description Data Source(s) Body weight 129.50 [lb_av] 129.50 [lb_av] MEDEN T ([facility]) Body temperature 96.9 [degF] 96.9 [degF] [facility] ([facility]) Body height 63 [in_i] 63 [in_i] [facility] ([facility]) 5'3" Body mass index (BMI) [Ratio] 22.9 kg/m2 22.9 k g/m2 [facility] ([facility]) Body mass index (BMI) [Ratio] 35.9 kg/m2 35.9 k g/m2 [facility] ([facility]) Body weight 209.00 [lb_av] 209.00 [lb_av] MEDEN T ([facility]) Body temperature 96.4 [degF] 96.4 [degF] [facility] ([facility]) Body height 64 [in_i] 64 [in_i] [facility] ([facility]) 5'4" Body weight 129 [lb_av] 129 [lb_av] eCW1 ([facility] license of [facility]) Body height [in_i] eCW1 ([facility]) Body weight 58.51 kg 58.51 kg eCW1 ([facility]) Body mass index (BMI) [Ratio] 23.59 kg/m2 23.59 kg/m2 eCW1 ([facility]) Systolic blood pressure 132 mm[Hg] 132 mm[Hg] e CW1 ([facility]) Diastolic blood pressure 86 mm[Hg] 86 mm[Hg] eCW1 ([facility]) Systolic blood pressure 128 mm[Hg] 128 mm[Hg] M EDENT ([facility]) Diastolic blood pressure 72 mm[Hg] 72 mm[Hg] [facility] ([facility]) Heart rate 72 /min 72 /min [facility] ([facility]) Body mass index (BMI) [Ratio] 23.0 kg/m2 23.0 k g/m2 [facility] ([facility]) Body height 62.75 [in_i] 62.75 [in_i] [facility] ([facility]) 5'2.75" Body weight 129.00 [lb_av] 129.00 [lb_av] MEDEN T ([facility]) Body surface area Derived from formula 1.59 m2 1.59 m2 [facility] ([facility]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) Systolic blood pressure 134 mm[Hg] 134 mm[Hg] M EDENT ([facility]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) Diastolic blood pressure 74 mm[Hg] 74 mm[Hg] [facility] (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) Body height 62.5 [in_i] 62.5 [in_i] [facility] ([facility]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) 5'2.50" Body weight 127.00 [lb_av] 127.00 [lb_av] MEDEN T (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) Body mass index (BMI) [Ratio] 22.9 kg/m2 22.9 k g/m2 [facility] (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) Body weight 120.00 [lb_av] 120.00 [lb_av] MEDEN T ([facility]) Systolic blood pressure 132 mm[Hg] 132 mm[Hg] M EDENT ([facility]) Diastolic blood pressure 80 mm[Hg] 80 mm[Hg] [facility] ([facility]) Body weight 129.00 [lb_av] 129.00 [lb_av] MEDEN T ([facility]) Systolic blood pressure 130 mm[Hg] 130 mm[Hg] [facility] Diastolic blood pressure 82 mm[Hg] 82 mm[Hg] [facility] ([facility]) Heart rate 80 /min 80 /min [facility] ([facility]) Body height 62.75 [in_i] 62.75 [in_i] MED[facility] ([facility]) 5'2.75" Body mass index (BMI) [Ratio] 23.0 kg/m2 23.0 k g/m2 [facility] Systolic blood pressure 126 mm[Hg] 126 mm[Hg] M [facility] ([facility]) Body mass index (BMI) [Ratio] 23.7 kg/m2 23.7 k g/m2 [facility] ([facility]) Body weight 133.00 [lb_av] 133.00 [lb_av] MEDEN T ([facility]) Diastolic blood pressure 78 mm[Hg] 78 mm[Hg] [facility] Heart rate 72 /min 72 /min [facility] ([facility]) Body height 62.75 [in_i] 62.75 [in_i] [facility] ([facility]) 5'2.75" Systolic blood pressure 125 mm[Hg] 125 mm[Hg] M [facility] ([facility]) Diastolic blood pressure 82 mm[Hg] 82 mm[Hg] [facility] ([facility]) Systolic blood pressure 140 mm[Hg] 140 mm[Hg] [facility] ([facility]) Diastolic blood pressure 90 mm[Hg] 90 mm[Hg] [facility] ([facility]) Body height 62.75 [in_i] 62.75 [in_i] [facility] ([facility]) 5'2.75" Body weight 130.00 [lb_av] 130.00 [lb_av] MEDEN T ([facility]) Body mass index (BMI) [Ratio] 23.2 kg/m2 23.2 k g/m2 [facility] ([facility]) Heart rate 78 /min 78 /min MEDVIKY ([facility])
[2021-04-19] MEDS ORDERED: propofoL 200 MG/20 ML VIAL As Ordered ONE (08:46)
[2021-04-19] MEDS ORDERED: dexameTHASONE 4 MG/ML 1ML VIAL (J1100 PER 1MG) As Ordered ONE (08:46)
[2021-04-19] MEDS ORDERED: MIDAZOLAM INJ 2MG/2ML VIAL (J2250 PER 1MG) As Ordered ONE (08:46)
[2021-04-19] MEDS ORDERED: ONDANSETRON 4MG/2ML VIAL As Ordered ONE (08:46)
[2021-04-19] MEDS ORDERED: KETOROLAC 60MG 2ML VIAL As Ordered ONE (08:46)
[2021-04-19] MEDS ORDERED: LIDOCAINE 2% 100MG/5ML SDV (FOR ANES.) As Ordered ONE (08:46)
[2021-04-19] MEDS ORDERED: fentaNYL 100 MCG/2 ML INJECTION (J3010) As Ordered ONE (08:46)
[2021-04-19] MEDS ORDERED: ePHEDrine SULFATE 25 MG/5 ML(5MG/ML) SYRINGE As Ordered ONE (12:05)
[2021-04-19] MEDS ORDERED: LR 1,000 ML IV SCH ×2 (12:45→12:50)
[2021-04-19] MEDS ORDERED: PERCOCET 5MG/325MG TAB PO PRN (12:45)
[2021-04-19] MEDS ORDERED: ONDANSETRON 4MG/2ML VIAL IV PRN (12:45)
[2021-04-19] MEDS ORDERED: fentaNYL 100 MCG/2 ML INJECTION (J3010) IV PRN (12:45)
[2021-04-19 14:03] VITALS: BP 125/72
--- NOTE | 2021-04-19 14:30 | RO ---
OPERATIVE NOTE DATE OF OPERATION: 04/19/2021 PREOPERATIVE DIAGNOSIS/INDICATION FOR SURGERY: Postmenopausal bleeding and fibroid. POSTOPERATIVE DIAGNOSIS: Postmenopausal bleeding and fibroid but with normal atrophic endometrium seen. No fibroid. PROCEDURE: D&C, hysteroscopy, MyoSure sampling. SURGEON: Roselyn Cleveland MD SHOE REPAIR COBBLER: None ANESTHESIA: LMA BRIEF DESCRIPTION OF PROCEDURE AND FINDINGS: Caitlyn was brought to the operating room where sufficient LMA anesthesia was induced. She was prepped and draped and positioned in the usual sterile fashion with the cervix grasped with single-tooth [place], dilated enough to allow introduction of the MyoSure hysteroscope and this was used to visualize the endometrial cavity as noted on photos. There was a normal endometrial cavity contour and normal triangular shaped, normal tubal ostia and thin, atrophic endometrium. There was no area that I could see with any distention or distortion indicating any fibroid close enough to distort the cavity in any way. We take the MyoSure Light sample this tissue to make sure we actually had a sample because it was so atrophic and even with a collection of the surface layer of the tissue, we did not develop any distortion or evidence of an underlying fibroid. There just was not a fibroid there distorting the cavity or leading to any kind of trouble. There was not any overgrowth. We did send the tissue to the pathologist for evaluation and I did work with the curette but as expected, there was very little back on the curettage, consistent with the atrophic appearance. After aggressive sampling and confirmation that there was no significant finding, we went ahead and ended the procedure. ESTIMATED BLOOD LOSS: 5 mL at most. FLUID REPLACEMENT: Crystalloid. COMPLICATIONS: None. CONDITION AND DISPOSITION: Caitlyn tolerated the procedure well and was recovering in the recovery room in good condition.
== END 2021-04-19 14:04 | disposition home or self-care (01) ==
LOC: M SDC 07:38
PROVIDERS: ATTEND Obstetrics & Gynecology
DX: N85.8 Other specified noninflammatory disorders of uterus (principal); D25.9 Leiomyoma of uterus, unspecified; R94.31 Abnormal electrocardiogram [ECG] [EKG]; I10 Essential (primary) hypertension; M54.30 Sciatica, unspecified side; Z88.2 Allergy status to sulfonamides; Z79.899 Other long term (current) drug therapy
CPT/HCPCS: 58558; 88305; J1100; J1885; J2250; J2405; J3010

== ENCOUNTER → 2022-04-24 | Outpatient (CLI) | payer BC ==
[~2022-04-24] MED LIST changes: +BUPR-71 PO; -BUPR150T5 PO; +LOSA25TA13 PO; -LOSA25TA14 PO; -LR 1,000 ML IV ONE
[2022-04-24 11:47] LABS: APPEARANCE, URINE MANUAL HAZY (CLEAR); COLOR, URINE MANUAL LT YELLOW (YELLOW)
[2022-04-24 11:48] LABS: BILIRUBIN, URINE MANUAL NEGATIVE (NEGATIVE); BLOOD URINE MANUAL NEGATIVE (NEGATIVE); GLUCOSE, URINE (UA) MANUAL NEGATIVE (NEGATIVE); KETONE, URINE MANUAL NEGATIVE (NEGATIVE); LEUKOCYTE ESTERASE, URINE MAN TRACE (NEGATIVE); NITRITE, URINE MANUAL NEGATIVE (NEGATIVE); PROTEIN, URINE MANUAL NEGATIVE (NEGATIVE); SPECIFIC GRAVITY,URINE MANUAL 1.005 (1.002-1.035); UROBILINOGEN, URINE MANUAL NORMAL (NORMAL)
[2022-04-24 12:17] LABS: BACTERIA, URINE SMALL AMOUNT; HYALINE CAST, URINE NONE SEEN /lpf (0-1); RBC, URINE NONE SEEN /hpf (0-3); SQUAMOUS EPITHELIAL CELL URINE SMALL AMOUNT /hpf (SMALL AMT); WBC, URINE 0-1 /hpf (0-3)
== END ==
LOC: M WUC 08:20
PROVIDERS: ATTEND Family Medicine
DX: N20.0 Calculus of kidney (principal); N39.0 Urinary tract infection, site not specified

== ENCOUNTER → 2022-04-25 | Outpatient (CLI) | payer BC | LOC: M WHC 13:12 | PROVIDERS: ATTEND Advanced Practice Midwife | DX: Z12.31 Encounter for screening mammogram for malignant neoplasm of breast (principal) ==

== ENCOUNTER → 2022-04-25 | Outpatient (REF) | payer BC | LOC: M PLALAB 14:05 | PROVIDERS: ATTEND Advanced Practice Midwife | DX: Z12.4 Encounter for screening for malignant neoplasm of cervix (principal) | CPT/HCPCS: 87624; G0123 ==

== ENCOUNTER → 2022-08-14 | Outpatient (CLI) | payer BC | LOC: M PLAIMG 11:00 | PROVIDERS: ATTEND Urology | DX: N20.1 Calculus of ureter (principal) ==

== ENCOUNTER → 2023-04-21 | Outpatient (CLI) | payer BC | LOC: M CARPUL 11:18 | PROVIDERS: ATTEND Family Medicine | DX: I34.1 Nonrheumatic mitral (valve) prolapse (principal) ==

== ENCOUNTER → 2023-07-11 | Outpatient (CLI) | payer BC ==
[~2023-07-11] MED LIST changes: +ASPI-161 PO; +B-12100010 PO; +CVS-161 PO; +ESTR1CAP2 PO; +GALZ50CA PO; +MAGN400C PO; +METO1TAB87 PO; +SERT50TA29 PO; +VITA-199 PO; +VITA500C24 PO
== END ==
LOC: M RAD 11:28
PROVIDERS: ATTEND Family Medicine
DX: E04.1 Nontoxic single thyroid nodule (principal)

== ENCOUNTER 2023-07-24 07:45 | Day surgery (SDC) | payer BC ==
[~2023-07-24] VITALS: Ht 157.5 cm; Wt 60.1 kg
[~2023-07-24 07:45] MED LIST changes: +LIDOCAINE 2% 100MG/5ML SDV (FOR ANES.) As Ordered ONE; +NS 1,000 ML IV ONE; +propofoL 200 MG/20 ML VIAL As Ordered ONE
[2023-07-24] MEDS ORDERED: fentaNYL 100 MCG/2 ML INJECTION As Ordered ONE (09:07)
[2023-07-24 09:36] VITALS: TEMP 97.7
[2023-07-24 10:00] VITALS: BP 112/74; O2SAT 97
== END 2023-07-24 10:01 | disposition home or self-care (01) ==
LOC: M OPP 07:45
PROVIDERS: ATTEND Surgery
DX: Z12.11 Encounter for screening for malignant neoplasm of colon (principal); Z80.0 Family history of malignant neoplasm of digestive organs; K21.00 Gastro-esophageal reflux disease with esophagitis, without bleeding; K29.70 Gastritis, unspecified, without bleeding; K30 Functional dyspepsia; I34.9 Nonrheumatic mitral valve disorder, unspecified; Z79.818 Long term (current) use of other agents affecting estrogen receptors and estrogen levels; Z79.82 Long term (current) use of aspirin; Z79.899 Other long term (current) drug therapy; Z88.2 Allergy status to sulfonamides
CPT/HCPCS: 43239; 45378; 88305; J3010

== ENCOUNTER → 2024-02-10 | Outpatient (CLI) | payer BC ==
[~2024-02-10] MED LIST changes: -ASPI-161 PO; +ASPI-615 PO; -LIDOCAINE 2% 100MG/5ML SDV (FOR ANES.) As Ordered ONE; -NS 1,000 ML IV ONE; -propofoL 200 MG/20 ML VIAL As Ordered ONE
== END ==
LOC: M RAD 10:13
PROVIDERS: ATTEND Urology
DX: N28.1 Cyst of kidney, acquired (principal)

== ENCOUNTER → 2024-11-11 | Outpatient (CLI) | payer BC ==
[~2024-11-11] MED LIST changes: -GALZ50CA PO; +ZINC50CA4 PO
== END ==
LOC: M WHC 10:57
PROVIDERS: ATTEND Advanced Practice Midwife
DX: Z12.31 Encounter for screening mammogram for malignant neoplasm of breast (principal)

== ENCOUNTER → 2025-02-23 | Outpatient (CLI) | payer BC | LOC: M WHC 08:41 | PROVIDERS: ATTEND Nurse Practitioner Family | DX: N64.4 Mastodynia (principal); L53.9 Erythematous condition, unspecified ==